=== PATIENT | female | born 1950 | race Caucasian/White ===

== ENCOUNTER 2017-03-18 14:58 | Inpatient (IN) ==
--- NOTE | 2017-03-18 16:31 | Emergency Department Note ---
Disposition Clinical Impression: Pancreatic mass, COPD exacerbation Pneumonia Qualifiers: Pneumonia type: due to unspecified organism Laterality: unspecified laterality Lung location: unspecified part of lung Qualified Code(s): J18.9 - Pneumonia, unspecified organism Disposition: Admitted As Inpatient Condition: Fair Referrals: Tj Ventura MD [Primary Care Provider] - Forms: ED Satisfaction Letter Time of Disposition: 18:20 General Adult HPI - General Chief complaint: ED Recheck/Abnormal Lab/Rx Stated complaint: abnormal labs Time Seen by Provider: 03/18/17 16:25 Source: patient Mode of arrival: ambulatory Limitations: no limitations Nursing Notes Reviewed: Yes Vital Signs Reviewed: Yes - History of Present Illness HPI Narrative: 66-year-old has history of COPD who comes in complaining of shortness of breath. Patient was seen by her doctor yesterday and he ordered a CBC and a d- dimer which were positive patient sent here to rule out a PE. Patient has had a cough. Pt Subjective Complaint: Shortness of breath Onset (ago): day(s) Location: chest Radiation: non-radiation Pain Scale: 0 - Related Data Allergies Allergy/AdvReac Type Severity Reaction Status Date / Time No Known Allergies Allergy Verified 03/18/17 15:12 All systems ED: reviewed and negative except as stated. Constitutional: Denies: fever, chills, weakness, weight change Eyes: Denies: eye pain, eye discharge, vision change ENT ED: Denies: ear pain, throat pain, dental pain, hearing loss, epistaxis, congestion, dysphagia Cardiovascular: Denies: chest pain, palpitations, dyspnea on exertion, edema, syncope Respiratory: Reports: cough, dyspnea. Denies: wheezes, hemoptysis, stridor Gastrointestinal: Denies: abdominal pain, nausea, vomiting, diarrhea, constipation, hematemesis, melena, hematochezia Genitourinary: Denies: dysuria, frequency, hematuria, discharge Musculoskeletal: Denies: back pain, neck pain, arthralgia, myalgia Integumentary: Denies: rash, abrasion, lesions Neurological: Denies: headache, weakness, numbness, paresthesias, confusion, abnormal gait, vertigo Psychiatric: Denies: anxiety, depression, suicidal thoughts, homicidal thoughts , auditory hallucinations, visual hallucinations Endocrine: Denies: fatigue Hematological/Lymphatic: Denies: easy bleeding, easy bruising Allergic/Immunologic: Denies: facial swelling, urticaria Past Medical History - Past Medical History Medical history: Reports: COPD, hypertension - Social History Smoking Status: Former smoker Smokeless Tobacco Status: No Alcohol use: Reports: heavy, recent Drug use: Reports: marijuana Physical Exam - General Limitations: no limitations General appearance: alert - Head Head exam: atraumatic, normocephalic, normal inspection - Eye Eye exam: Present: normal appearance, PERRL, EOMI - ENT ENT exam: normal exam, normal oropharynx, mucous membranes moist - Neck Neck exam: Present: normal inspection, full ROM, trachea midline - Chest Chest inspection: Present: normal inspection, symmetric chest wall rise - Respiratory Respiratory exam: Present: normal lung sounds bilaterally - Cardiovascular Cardiovascular exam: Present: regular rate, normal rhythm, normal heart sounds - Abdominal Exam Abdominal exam: Present: soft, Non-Tender. Absent: tenderness, distention, guarding, rebound, rigidity - Extremities Exam Extremities exam: Present: normal inspection, full ROM. Absent: tenderness, pedal edema - Expanded Lower Extremity Exam Neurovascular/Tendon exam: Absent: motor deficit, sensory deficit, tendon deficit Gait: observed and normal - Back Exam Back exam: Present: normal inspection, full ROM. Absent: tenderness - Neurological Exam Neurological exam: Present: alert, oriented X3 - Psychiatric Psychiatric exam: Present: normal affect, normal mood - Skin Skin exam: Present: warm, dry, intact, normal color Course - Reevaluation(s) Reevaluation #1: 66-year-old comes in with increasing shortness of breath seen by family practice doctor yesterday and started on antibiotics. Patient had lab work done and her d-dimer was elevated along with her white count so she was sent in for evaluation for possible PE. CT scan was obtained today no PE she does have a spiculated small nodule of which should be followed according to radiology and she also has a questionable mass in the head of her pancreas. She also has evidence of infection was treated but findings. Patient will be admitted for IV antibiotics. Time: 18:18 - Consultations Consultation #1: Discussed with Layla Suggs nurse practitioner Time: 18:18 Vital Signs Temperature 98.3 F 03/18/17 15:09 Pulse Rate 83 03/18/17 15:09 Respiratory Rate 18 03/18/17 15:09 Blood Pressure 186/94 03/18/17 15:09 O2 Sat by Pulse Oximetry 94 03/18/17 15:09 Temperature 98.3 F 03/18/17 15:09 Pulse Rate 78 03/18/17 17:18 Respiratory Rate 18 03/18/17 17:18 Blood Pressure 168/101 03/18/17 17:18 O2 Sat by Pulse Oximetry 100 03/18/17 17:18 Oxygen Delivery Oxygen Delivery Nasal Cannula Medical Decision Making - Lab Data Result diagrams: 03/18/17 16:44 03/18/17 16:49 Lab Results 03/18/17 03/18/17 03/18/17 Range/Units 16:44 16:49 16:49 WBC 14.1 H (4.3-11.1) K/mcL RBC 4.03 (3.82-4.97) M/mcL Hgb 13.3 (11.5-15.4) g/dL Hct 38.0 (35.3-44.9) % MCV 94.3 (83.0-100.0) fL MCH 33.0 (28.0-33.3) pg MCHC 35.0 (31.6-35.5) g/dL RDW 11.9 (11.5-14.5) % Plt Count 334 (140-400) K/mcL MPV 9.1 L (9.4-12.4) fL Seg Neutrophils % 72.0 % Band Neutrophils % 10.0 H (0-4) % Lymphocytes % 6.0 % Monocytes % 10.0 % Metamyelocytes % 2.0 H (0) % Neutrophils # 11.6 H (1.6-8.9) K/mcL Lymphocytes # 0.9 (0.6-4.6) K/mcL Monocytes # 1.4 H (0.0-1.3) K/mcL Toxic Granulation Present A (Not Present) Platelet Estimate Normal (Normal) D-Dimer 1527 H (0-500) ng/mLFEU Sodium 125 L (136-145) mEq/L Potassium 3.3 L (3.5-4.5) mEq/L Chloride 89 L (98-109) mEq/L Carbon Dioxide 27 (19-29) mEq/L BUN 11 (7-20) mg/dL Creatinine 0.70 (0.57-1.11) mg/dL Est GFR ( Amer) > 60 (> 60) Est GFR (Non-Af Amer) > 60 (> 60) BUN/Creatinine Ratio 16 (6-26) Glucose 117 H (70-99) mg/dL Calculated Osmolality 260 L (280-300) Lactic Acid (0.5-2.2) mmol/L Calcium 9.4 (8.6-10.8) mg/dL Troponin I (0-0.03) ng/mL 03/18/17 03/18/17 Range/Units 16:49 16:49 WBC (4.3-11.1) K/mcL RBC (3.82-4.97) M/mcL Hgb (11.5-15.4) g/dL Hct (35.3-44.9) % MCV (83.0-100.0) fL MCH (28.0-33.3) pg MCHC (31.6-35.5) g/dL RDW (11.5-14.5) % Plt Count (140-400) K/mcL MPV (9.4-12.4) fL Seg Neutrophils % % Band Neutrophils % (0-4) % Lymphocytes % % Monocytes % % Metamyelocytes % (0) % Neutrophils # (1.6-8.9) K/mcL Lymphocytes # (0.6-4.6) K/mcL Monocytes # (0.0-1.3) K/mcL Toxic Granulation (Not Present) Platelet Estimate (Normal) D-Dimer (0-500) ng/mLFEU Sodium (136-145) mEq/L Potassium (3.5-4.5) mEq/L Chloride (98-109) mEq/L Carbon Dioxide (19-29) mEq/L BUN (7-20) mg/dL Creatinine (0.57-1.11) mg/dL Est GFR ( Amer) (> 60) Est GFR (Non-Af Amer) (> 60) BUN/Creatinine Ratio (6-26) Glucose (70-99) mg/dL Calculated Osmolality (280-300) Lactic Acid 1.4 (0.5-2.2) mmol/L Calcium (8.6-10.8) mg/dL Troponin I 0.01 (0-0.03) ng/mL - EKG Data EKG #1 EKG attestation: Yes I reviewed and interpreted this EKG. EKG shows normal: sinus rhythm Rate: normal Rhythm: NSR Interpretation: no acute changes
[2017-03-18] MEDS ORDERED: Ipratropium/Albuterol Neb 3 ML IH ONE (16:32)
[2017-03-18] MEDS ORDERED: methylPREDNISolone 125 MG/2 ML VIAL IVP ONE (16:34)
[2017-03-18 17:01] LABS: Hemoglobin 13.3 g/dL (11.5-15.4); Mean Corpuscular Volume 94.3 fL (83.0-100.0); Mean Platelet Volume 9.1 fL (9.4-12.4); Platelet Count 334 K/mcL (140-400); Red Blood Count 4.03 M/mcL (3.82-4.97); Red Cell Distribution Width 11.9 % (11.5-14.5)
[2017-03-18 17:17] LABS: BUN/Creatinine Ratio 16 (6-26); Blood Urea Nitrogen 11 mg/dL (7-20); Calcium 9.4 mg/dL (8.6-10.8); Carbon Dioxide 27 mEq/L (19-29); Chloride 89 mEq/L (98-109); Glucose 117 mg/dL (70-99); Osmolality,Calculated 260 (280-300); Potassium 3.3 mEq/L (3.5-4.5); Sodium 125 mEq/L (136-145); eGFR For African Americans > 60 (> 60); eGFR For Non-African Americans > 60 (> 60)
[2017-03-18 17:31] LABS: Lymphocytes # 0.9 K/mcL (0.6-4.6); Monocytes # 1.4 K/mcL (0.0-1.3); Neutrophils # 11.6 K/mcL (1.6-8.9)
[2017-03-18 17:32] LABS: Platelet Estimate Normal (Normal)
[2017-03-18 17:33] LABS: Toxic Granulation Present (Not Present)
[2017-03-18] MEDS ORDERED: Levofloxacin 750 MG/150 ML 750 MG/150 ML BAG IVPB ONE (18:16)
[2017-03-18] MEDS ORDERED: Naloxone 0.4 MG/ML INJ IVP PRN (19:52)
[2017-03-18] MEDS ORDERED: Acetaminophen 325 MG TABLET PO PRN (19:52)
[2017-03-18] MEDS ORDERED: Albuterol 2.5 MG/3 ML NEBULIZER IH PRN (19:54)
[2017-03-18] MEDS ORDERED: *HR* LORazepam 2 MG/ML VIAL IVP PRN ×3 (21:43)
--- NOTE | 2017-03-18 21:54 | Internal Med History&Physical ---
Date of Encounter: 03/18/17 Time of Encounter: 21:48 Assessment and Plan (1) Atypical pneumonia Current visit: Yes Status: Acute Patient with increased shortness of breath and productive cough since Thursday. Chest CTA showed dense consolidation within the and tear lateral lower lungs bilaterally thought to be more pronounced fibrosis versus superimposed pneumonia , as well as a few more irregular opacities within the right upper lobe which have tree-in-bud appearance and may be related to atypical infection versus aspiration. Patient is at risk for atypical pneumonia with marijuana usage, and daily alcohol intake putting her at risk for aspiration. White blood cell count was elevated to 14.1. We will give broad-spectrum antibiotics Zosyn, and Levaquin. DuoNeb treatments 4 times a day Albuterol nebulizer every 2 when necessary Mucinex twice a day (2) COPD exacerbation Current visit: Yes Status: Acute Patient with COPD. She has increased shortness of breath and productive cough, pneumonia diagnosis. CT revealed severe emphysematous changes and fibrotic changes within both lungs. Budesonide formoterol twice a day DuoNeb treatments 4 times a day Albuterol nebulizer every 2 hours when necessary Solu-Medrol 40 mg IV push 3 times a day Mucinex twice a day Titrate oxygen to maintain saturation greater than 92%. (3) Hyponatremia Current visit: Yes Status: Acute Sodium of 125. Give IV fluids 0.9 normal saline at 125. Restrict free water to 1 L daily. Recheck chemistry with morning labs. Urine sodium and osmolality ordered. (4) Lung mass Current visit: Yes Status: Acute CT of the chest shows a 6 mm area nodularity along the fissure on the right which is somewhat spiculated in appearance. Follow-up is recommended. Advised follow-up CT as an outpatient to assess for progression of the mass. (5) Hypertension Current visit: Yes Status: Acute Continue home doses of atenolol and losartan Qualifiers: Hypertension type: essential hypertension Qualified Code(s): I10 - Essential (primary) hypertension (6) Pancreatic mass Current visit: Yes Status: Acute CT of the chest also revealed a cystic area involving the pancreatic head, this was incompletely imaged and evaluated. A CT of the abdomen and pelvis with contrast is recommended on a nonemergent ASIS to further evaluate. Patient can have this done as an outpatient. (7) DVT prophylaxis Current visit: Yes Status: Acute Antiembolic stockings Lovenox 40 mg subcutaneous daily Internal Medicine - H&P: HPI Chief complaint: shortness of breath Admitted From: Emergency Dept Plans for Post Hospital Care: Home History of present illness: Ms. Nichols is a 66 year old female with hypertension and COPD who presented to the emergency department today obstruction of her PCP with complaints of shortness of breath and abnormal d-dimer. Patient went to her PCP yesterday for increased shortness of breath and productive cough developing over the weekend she was diagnosed with pneumonia and started on oral antibiotics, labs were drawn and d-dimer was elevated so she was sent to the ER to rule out PE. Patient reports chills, sweats, denies any headache, chest pain, palpitations. Reports her cough is productive of thick yellow sputum. Evaluation in the ER included a chest CTA which showed no evidence of PE, emphysema, irregular opacities in the lung, and pancreatic cyst. With blood cell count was elevated to 14.1. Patient was hyponatremic with sodium of 125, and hypokalemic with potassium of 3.3. Lactate was normal at 1.4, troponin was normal at 0.01. On exam, patient alert and oriented, in no acute distress. Heart had regular rate and rhythm. Lungs with reduced sounds. Past Med Surg Social Fam HX - Past Medical History Medical history: COPD, hypertension Psychiatric history: no psych history - Past Surgical History Surgical History: no surgical history - Social History Smoking Status: Former smoker (30 pack year history) Smokeless Tobacco Status: No Alcohol use: heavy, recent Drug use: marijuana - Family History Father Adopted: [place]: Shane Corral Jr Family Member Ethnicity: Non- Living Status: Hx Family Cardiac Disorders: Yes Hx Family Respiratory Disorders: Yes Hx Family Cancer: No Hx Family GI Disorders: No Hx Family Genitourinary Disorders: No Hx Family Endocrine Disorder: No Internal Medicine - H&P: Meds Albuterol Sulfate [Albuterol Inhaler] 2 puff IH Q4-6H PRN 03/18/17 [History] Atenolol [Tenormin] 50 mg PO BID 03/18/17 [History] Clarithromycin [Biaxin] 500 mg PO BID 03/18/17 [History] Losartan Potassium [Cozaar] 100 mg PO DAILY 03/18/17 [History] Allergies No Known Allergies Allergy (Verified 03/18/17 15:12) All Systems PM: A 10-system review of systems was performed and is negative for pertinent findings except as documented above in the HPI. - Constitutional Constitutional: chills, night sweats, no fever(s) - EENT Eyes: no change in vision, no discharge, no pain, no photophobia Ears: no ear discharge, no ear pain, no tinnitus Nose, mouth and throat: no dysphagia, no nasal discharge, no neck pain, no sore throat - Cardiovascular Cardiovascular ROS IM: dyspnea, no chest pain, no diaphoresis, no lightheadedness, no palpitations, no syncope - Respiratory Respiratory: cough, dyspnea, excessive phlegm production, change in phlegm color , no wheezing - Gastrointestinal Gastrointestinal: no abdominal pain, no diarrhea, no hematemesis, no hematochezia, no melena, no nausea, no vomiting - Genitourinary Genitourinary: no change in urinary stream, no dysuria, no flank pain, no hematuria - Musculoskeletal Musculoskeletal ROS IM: no numbness, no tingling - Integumentary Integumentary IM: no rash, no unusual bruising - Neurological Neurological ROS: no confusion, no convulsions, no focal weakness, no numbness, no tingling, no tremor(s) - Hematologic/Lymphatic Hematologic/Lymphatic: no easy bruising - Constitutional Vitals: Temp Pulse Resp BP Pulse Ox 98.6 F 94 16 151/95 96 03/18/17 19:41 03/18/17 19:41 03/18/17 19:41 03/18/17 19:41 03/18/17 19:41 General appearance: Present: A&O X 3, pleasant, no acute distress - Head Head exam: Present: atraumatic, normocephalic - Eye Eye exam: Present: PERRL, conjuntiva pink, sclera anicteric Pupils: Present: PERRL - Neck Neck exam general surgery: Present: supple, trachea midline. Absent: lymphadenopathy - Respiratory Respiratory exam: Present: decreased breath sounds. Absent: accessory muscle use, rales, rhonchi, wheezes - Cardiovascular Cardiovascular exam: Present: RRR, +S1, +S2. Absent: diastolic murmur, gallop, rubs, systolic murmur - GI/Abdominal GI/Abdominal exam: Present: normal bowel sounds, soft, no peritoneal signs. Absent: distended, tenderness - Extremities Exam Extremities exam: Present: warm, radial pulses palpable and symetrical. Absent : calf tenderness, cyanotic, pedal edema - Neurological Exam Neurological exam: Present: CN II-XII intact, oriented X3, no focal deficits. Absent: facial droop, speech deficit - Skin Skin exam: Present: dry, intact Internal Med - H&P Results - Labs CBC & Chem 7: 03/18/17 16:44 03/18/17 16:49 Labs: All Lab Results (24 Hours) 03/18/17 03/18/17 03/18/17 Range/Units 16:44 16:49 16:49 WBC 14.1 H (4.3-11.1) K/mcL RBC 4.03 (3.82-4.97) M/mcL Hgb 13.3 (11.5-15.4) g/dL Hct 38.0 (35.3-44.9) % MCV 94.3 (83.0-100.0) fL MCH 33.0 (28.0-33.3) pg MCHC 35.0 (31.6-35.5) g/dL RDW 11.9 (11.5-14.5) % Plt Count 334 (140-400) K/mcL MPV 9.1 L (9.4-12.4) fL Seg Neutrophils % 72.0 % Band Neutrophils % 10.0 H (0-4) % Lymphocytes % 6.0 % Monocytes % 10.0 % Metamyelocytes % 2.0 H (0) % Neutrophils # 11.6 H (1.6-8.9) K/mcL Lymphocytes # 0.9 (0.6-4.6) K/mcL Monocytes # 1.4 H (0.0-1.3) K/mcL Toxic Granulation Present A (Not Present) Platelet Estimate Normal (Normal) D-Dimer 1527 H (0-500) ng/mLFEU Sodium 125 L (136-145) mEq/L Potassium 3.3 L (3.5-4.5) mEq/L Chloride 89 L (98-109) mEq/L Carbon Dioxide 27 (19-29) mEq/L BUN 11 (7-20) mg/dL Creatinine 0.70 (0.57-1.11) mg/dL Est GFR ( Amer) > 60 (> 60) Est GFR (Non-Af Amer) > 60 (> 60) BUN/Creatinine Ratio 16 (6-26) Glucose 117 H (70-99) mg/dL Calculated Osmolality 260 L (280-300) Lactic Acid (0.5-2.2) mmol/L Calcium 9.4 (8.6-10.8) mg/dL Troponin I (0-0.03) ng/mL 03/18/17 03/18/17 Range/Units 16:49 16:49 WBC (4.3-11.1) K/mcL RBC (3.82-4.97) M/mcL Hgb (11.5-15.4) g/dL Hct (35.3-44.9) % MCV (83.0-100.0) fL MCH (28.0-33.3) pg MCHC (31.6-35.5) g/dL RDW (11.5-14.5) % Plt Count (140-400) K/mcL MPV (9.4-12.4) fL Seg Neutrophils % % Band Neutrophils % (0-4) % Lymphocytes % % Monocytes % % Metamyelocytes % (0) % Neutrophils # (1.6-8.9) K/mcL Lymphocytes # (0.6-4.6) K/mcL Monocytes # (0.0-1.3) K/mcL Toxic Granulation (Not Present) Platelet Estimate (Normal) D-Dimer (0-500) ng/mLFEU Sodium (136-145) mEq/L Potassium (3.5-4.5) mEq/L Chloride (98-109) mEq/L Carbon Dioxide (19-29) mEq/L BUN (7-20) mg/dL Creatinine (0.57-1.11) mg/dL Est GFR ( Amer) (> 60) Est GFR (Non-Af Amer) (> 60) BUN/Creatinine Ratio (6-26) Glucose (70-99) mg/dL Calculated Osmolality (280-300) Lactic Acid 1.4 (0.5-2.2) mmol/L Calcium (8.6-10.8) mg/dL Troponin I 0.01 (0-0.03) ng/mL - Diagnostic Studies CT scan - chest Additional comments: Chest CTA 03/18/17 16:27 IMPRESSION: No evidence of pulmonary embolism. There R moderate to severe emphysematous changes as well as fibrotic changes within both lungs. There is more dense consolidation within the antro lateral lower lungs bilaterally which may be related to more focal pronounced fibrosis with superimposed pneumonia not excluded. There are a few more irregular opacities within the right upper lobe which have a tree-in-bud appearance and may be related to atypical infection versus aspiration. There is a 6 mm area nodularity along the fissure on the right which is somewhat spiculated in appearance. Follow-up is recommended. On the very last image only there appears to be a cystic area involving the pancreatic head. This is incompletely imaged and evaluated on this study. CT abdomen and pelvis with contrast recommended on a nonemergent basis to determine if this is a true finding. D/ / Elsa Mccartney MD / Elsa Mccartney MD Interpreting Provider: Elsa Mccartney MD
[2017-03-18] MEDS ORDERED: Vancomycin 750 MG in D5% in Water 250 ML IVPB SCH ×2 (22:00→23:00)
[2017-03-18] MEDS: 0.9 % Sodium Chloride 1,000 ML IVC SCH (23:30)
[2017-03-18] MEDS: Budesonide/Formoterol 160/4.5 MDI IH SCH (23:37)
[2017-03-18] MEDS: Ipratropium/Albuterol Neb 3 ML IH SCH (23:37)
[2017-03-18] MEDS: MethylPREDNISolone 40 MG/ML VIAL IVP SCH (23:40)
[2017-03-19] MEDS: Piperacillin/Tazobactam 3.375 GM in D5% in Water (Mini-Bag+) 100 ML IVPB SCH ×2 (00:54→07:53)
--- NOTE | 2017-03-19 01:06 | Event Note ---
Date of Encounter: 03/19/17 Time of Encounter: 01:04 Patient seen and examined with nurse practitioner. Agree with assessment and plan. COPD exacerbation and community acquired pneumonia. Call she had received 2 days of Levaquin still with lots of purulent sputum production and Bandemia I will cover for gram-negative such a pseudomonas with Zosyn. IV steroids and nebulizer treatments. 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 There is a 6 mm speculated lung module as well as a sadistic structure and head of the pancrease. Both will need outpatient follow-up in the later will need contrasted CT scan of the abdomen. I have discussed this with the patient in details.
[2017-03-19] MEDS: Ipratropium/Albuterol Neb 3 ML IH SCH ×4 (04:21→22:41)
[2017-03-19 05:07] LABS: Hematocrit 36.3 % (35.3-44.9); Hemoglobin 12.9 g/dL (11.5-15.4); Mean Corpuscular HGB Conc 35.5 g/dL (31.6-35.5); Mean Corpuscular Hemoglobin 33.2 pg (28.0-33.3); Mean Corpuscular Volume 93.3 fL (83.0-100.0); Mean Platelet Volume 9.6 fL (9.4-12.4); Monocytes # 0.2 K/mcL (0.0-1.3); Platelet Count 344 K/mcL (140-400); Red Blood Count 3.89 M/mcL (3.82-4.97); Red Cell Distribution Width 11.9 % (11.5-14.5)
[2017-03-19 05:21] LABS: BUN/Creatinine Ratio 15 (6-26); Blood Urea Nitrogen 9 mg/dL (7-20); Carbon Dioxide 23 mEq/L (19-29); Chloride 95 mEq/L (98-109); Glucose 175 mg/dL (70-99); Osmolality,Calculated 267 (280-300); Potassium 3.9 mEq/L (3.5-4.5); Sodium 127 mEq/L (136-145); eGFR For African Americans > 60 (> 60); eGFR For Non-African Americans > 60 (> 60)
[2017-03-19] MEDS: 0.9 % Sodium Chloride 1,000 ML IVC SCH ×3 (06:03→16:00)
[2017-03-19 06:05] LABS: Lymphocytes # 1.2 K/mcL (0.6-4.6); Neutrophils # 6.3 K/mcL (1.6-8.9); Platelet Estimate Normal (Normal); Reactive Lymphocytes Present (Not Present); Toxic Granulation Present (Not Present)
[2017-03-19] MEDS: Vitamin B Complex/Vit C/Vit E 1 EACH TABLET PO SCH (07:54)
[2017-03-19] MEDS: Folic Acid 1 MG TABLET PO SCH (07:55)
[2017-03-19] MEDS: MethylPREDNISolone 40 MG/ML VIAL IVP SCH (07:55)
[2017-03-19] MEDS: *HR* Enoxaparin 40 MG/0.4 ML SYRINGE SQ SCH (07:55)
[2017-03-19] MEDS: Thiamine (B-1) 100 MG TABLET PO SCH (07:55)
--- NOTE | 2017-03-19 08:50 | Internal Med Progress Note ---
Date of Encounter: 03/19/17 Time of Encounter: 08:48 - Assessment and plan (1) Hyponatremia Current Visit: Yes Status: Acute Assessment and plan: Probably hypovolemic hyponatremia due to underlying pneumonia and alcohol abuse. Serum sodium noted to be improving, 127 today. Continue IV hydration, follow-up urine osmole at 80 and urine sodium and monitor serum sodium closely. (2) Pneumonia Current Visit: Yes Status: Acute Assessment and plan: CT angiogram of chest shows no evidence of pulmonary embolism but does show bilateral basal infiltrates along with right upper lobe tree-in-bud opacities, concerning for atypical pneumonia. Follow-up blood cultures, continue IV Levaquin. Supportive care and supplemental oxygen as needed. Qualifiers: Pneumonia type: due to unspecified organism Laterality: right Lung location: upper lobe of lung Qualified Code(s): J18.1 - Lobar pneumonia, unspecified organism (3) Alcohol withdrawal Current Visit: Yes Status: Acute Assessment and plan: Patient was noted to be alert and oriented this morning but began to get confused, hypotensive and anxious towards evening. Patient reportedly drinks 4- 5 beers each day. Continue CIWA protocol with when necessary Ativan. Start scheduled Librium. Thiamine and folate supplements. Supportive care and fall precautions. Qualifiers: Complication of substance-induced condition: with delirium Qualified Code(s ): F10.231 - Alcohol dependence with withdrawal delirium (4) COPD exacerbation Current Visit: Yes Status: Acute Assessment and plan: Improving. We will change steroids to oral prednisone. Continue scheduled bronchodilators and supplemental oxygen as needed. Supportive care. (5) Hypertension Current Visit: Yes Status: Chronic Assessment and plan: Blood pressure noted to be elevated, probably due to alcohol withdrawal. Continue beta cyn, ARB along with when necessary IV hydralazine for appropriate blood pressure control. Qualifiers: Hypertension type: essential hypertension Qualified Code(s): I10 - Essential (primary) hypertension (6) Pancreatic mass Current Visit: Yes Status: Chronic Assessment and plan: Cystic mass in pancreatic head, incidental finding on CT chest. Outpatient follow-up for further assessment. - Subjective Interval history: Feels well; continues to have cough with yellowish sputum; improving shortness of breath; no chest pain - Constitutional Vitals: Temp Pulse Resp BP Pulse Ox 98.2 F 102 18 178/94 96 03/19/17 06:42 03/19/17 06:42 03/19/17 06:42 03/19/17 06:42 03/19/17 06:42 General appearance: Present: A&O X 3, answers questions appropriately (however noted to have flight of thoughts) - Respiratory Respiratory exam: Present: CTAB. Absent: accessory muscle use, rales, rhonchi, wheezes - Cardiovascular Cardiovascular exam: Present: RRR, +S1, +S2, tachycardia. Absent: diastolic murmur, gallop, rubs, systolic murmur - GI/Abdominal GI/Abdominal exam: Present: normal bowel sounds, soft, no peritoneal signs. Absent: distended, tenderness - Extremities Exam Extremities exam: Present: full ROM, warm, radial pulses palpable and symetrical. Absent: calf tenderness, cyanotic, pedal edema - Neurological Exam Neurological exam: Present: CN II-XII intact, oriented X3, no focal deficits. Absent: pronater drift, facial droop, speech deficit Internal Medicine: Result - Labs CBC & Chem 7: 03/19/17 04:05 03/19/17 04:05 Labs: Short CBC 03/19/17 Range/Units 04:05 WBC 7.7 (4.3-11.1) K/mcL Hgb 12.9 (11.5-15.4) g/dL Hct 36.3 (35.3-44.9) % Plt Count 344 (140-400) K/mcL Neutrophils # 6.3 (1.6-8.9) K/mcL BMP 03/19/17 04:05 Sodium 127 L Potassium 3.9 Chloride 95 L Carbon Dioxide 23 BUN 9 Creatinine 0.59 Glucose 175 H Calcium 9.0 - ABG Interpretation ABG results: PT/INR, D-dimer D-Dimer 1527 ng/mLFEU (0-500) H 03/18/17 16:49 - VTE Documentation of Mechanical Device: Graduated compression elastic hosiery Consult Discharge Plan - Plan Referrals: Tj Ventura MD [Primary Care Provider] - 03/26/17 1:30 pm (Please follow up as schedule...)
[2017-03-19] MEDS: Budesonide/Formoterol 160/4.5 MDI IH SCH ×2 (10:42→22:41)
[2017-03-19] MEDS ORDERED: *HR* LORazepam 2 MG/ML VIAL IVP PRN ×3 (12:26)
--- NOTE | 2017-03-19 14:47 | Electrocardiograph Report ---
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
[2017-03-19] MEDS: predniSONE 20 MG TABLET PO SCH (15:33)
[2017-03-19] MEDS: *HR* LORazepam 1 MG TABLET PO PRN (15:55)
[2017-03-19 17:58] LABS: BUN/Creatinine Ratio 21 (6-26); Blood Urea Nitrogen 13 mg/dL (7-20); Calcium 9.5 mg/dL (8.6-10.8); Carbon Dioxide 23 mEq/L (19-29); Chloride 98 mEq/L (98-109); Glucose 193 mg/dL (70-99); Osmolality,Calculated 275 (280-300); Potassium 3.7 mEq/L (3.5-4.5); Sodium 130 mEq/L (136-145); eGFR For African Americans > 60 (> 60); eGFR For Non-African Americans > 60 (> 60)
[2017-03-19] MEDS: Levofloxacin 750 MG/150 ML 750 MG/150 ML BAG IVPB SCH (18:20)
[2017-03-20 01:02] LABS: BUN/Creatinine Ratio 19 (6-26); Blood Urea Nitrogen 12 mg/dL (7-20); Calcium 9.3 mg/dL (8.6-10.8); Carbon Dioxide 22 mEq/L (19-29); Chloride 100 mEq/L (98-109); Glucose 152 mg/dL (70-99); Osmolality,Calculated 275 (280-300); Potassium 4.1 mEq/L (3.5-4.5); Sodium 131 mEq/L (136-145); eGFR For African Americans > 60 (> 60); eGFR For Non-African Americans > 60 (> 60)
[2017-03-20] MEDS: Ipratropium/Albuterol Neb 3 ML IH SCH ×4 (04:28→22:15)
[2017-03-20] MEDS: 0.9 % Sodium Chloride 1,000 ML IVC SCH (04:49)
[2017-03-20 05:10] LABS: Hematocrit 34.3 % (35.3-44.9); Hemoglobin 11.7 g/dL (11.5-15.4); Immature Platelets 2.9 % (1.1-6.1); Mean Corpuscular HGB Conc 34.1 g/dL (31.6-35.5); Mean Corpuscular Hemoglobin 33.1 pg (28.0-33.3); Mean Corpuscular Volume 97.2 fL (83.0-100.0); Mean Platelet Volume 9.3 fL (9.4-12.4); Platelet Count 418 K/mcL (140-400); Red Blood Count 3.53 M/mcL (3.82-4.97); Red Cell Distribution Width 12.4 % (11.5-14.5)
[2017-03-20 05:23] LABS: BUN/Creatinine Ratio 18 (6-26); Blood Urea Nitrogen 10 mg/dL (7-20); Carbon Dioxide 25 mEq/L (19-29); Chloride 101 mEq/L (98-109); Glucose 149 mg/dL (70-99); Magnesium 1.6 mg/dL (1.6-2.6); Osmolality,Calculated 278 (280-300); Potassium 4.2 mEq/L (3.5-4.5); Sodium 133 mEq/L (136-145); eGFR For African Americans > 60 (> 60); eGFR For Non-African Americans > 60 (> 60)
[2017-03-20 05:48] LABS: Large Platelets Present (Not Present); Lymphocytes # 1.6 K/mcL (0.6-4.6); Monocytes # 1.2 K/mcL (0.0-1.3); Neutrophils # 16.9 K/mcL (1.6-8.9); Platelet Estimate Increased (Normal); Reactive Lymphocytes Present (Not Present)
[2017-03-20 05:49] LABS: Toxic Granulation Present (Not Present)
[2017-03-20] MEDS: *HR* Enoxaparin 40 MG/0.4 ML SYRINGE SQ SCH (06:07)
[2017-03-20] MEDS: Thiamine (B-1) 100 MG TABLET PO SCH (09:28)
[2017-03-20] MEDS: predniSONE 20 MG TABLET PO SCH (09:28)
[2017-03-20] MEDS: Vitamin B Complex/Vit C/Vit E 1 EACH TABLET PO SCH (09:28)
[2017-03-20] MEDS: Folic Acid 1 MG TABLET PO SCH (09:28)
[2017-03-20] MEDS ORDERED: predniSONE 20 MG TABLET PO SCH (10:19)
--- NOTE | 2017-03-20 10:36 | Internal Med Progress Note ---
Date of Encounter: 03/20/17 Time of Encounter: 10:35 - Assessment and plan (1) Hyponatremia Current Visit: Yes Status: Acute Assessment and plan: Probably hypovolemic hyponatremia due to underlying pneumonia and alcohol abuse , excess free water ingestion. Serum sodium noted to be improving, 133 today. Urine osmolality noted to be low normal, urine sodium normal. Hold IV hydration and continue to monitor closely. (2) Pneumonia Current Visit: Yes Status: Acute Assessment and plan: CT angiogram of chest shows no evidence of pulmonary embolism but does show bilateral basal infiltrates along with right upper lobe tree-in-bud opacities, concerning for atypical pneumonia. Although clinically stable, patient is noted to have worsening leukocytosis. Leukocytosis initially improved but noted to be worsening today. Continue IV Levaquin and restart IV Zosyn as WBC count responded to Zosyn initially. Preliminary blood cultures remained negative, sputum culture so far negative. We will consider repeating CT chest without contrast if WBC count continues to get worse tomorrow. Supportive care and supplemental oxygen as needed. Home oxygen evaluation has been completed and patient would benefit from 2 L/m supplemental oxygen via nasal cannula, continuous and patient is noted to be mobile at home. Qualifiers: Pneumonia type: due to unspecified organism Laterality: right Lung location: upper lobe of lung Qualified Code(s): J18.1 - Lobar pneumonia, unspecified organism (3) Alcohol withdrawal Current Visit: Yes Status: Suspected Assessment and plan: Suspected. Taper off Librium. Qualifiers: Complication of substance-induced condition: uncomplicated Qualified Code(s ): F10.230 - Alcohol dependence with withdrawal, uncomplicated (4) COPD exacerbation Current Visit: Yes Status: Acute Assessment and plan: Improving. Continue oral prednisone. Continue scheduled bronchodilators and supplemental oxygen as needed. Supportive care. (5) Hypertension Current Visit: Yes Status: Chronic Assessment and plan: Blood pressure noted to be fairly controlled today but overall continues to be elevated. Continue home medications and start oral hydralazine. Will use when necessary IV hydralazine for appropriate blood pressure control. Qualifiers: Hypertension type: essential hypertension Qualified Code(s): I10 - Essential (primary) hypertension (6) Pancreatic mass Current Visit: Yes Status: Chronic - Subjective Interval history: Reports feeling improved; cough is dry now and has intermittent shortness of breath; no fever, chills, confusion, dizziness; - Constitutional Vitals: Temp Pulse Resp BP Pulse Ox 98.2 F 93 19 149/86 97 03/20/17 06:36 03/20/17 06:36 03/20/17 06:36 03/20/17 06:36 03/20/17 06:36 General appearance: Present: cachectic, A&O X 3, answers questions appropriately - Respiratory Respiratory exam: Present: CTAB. Absent: accessory muscle use, rales, rhonchi, wheezes - Cardiovascular Cardiovascular exam: Present: RRR, +S1, +S2. Absent: diastolic murmur, gallop, rubs, systolic murmur - GI/Abdominal GI/Abdominal exam: Present: normal bowel sounds, soft, no peritoneal signs. Absent: distended, tenderness - Extremities Exam Extremities exam: Present: full ROM, warm, radial pulses palpable and symetrical. Absent: calf tenderness, cyanotic, pedal edema Internal Medicine: Result - Labs CBC & Chem 7: 03/20/17 12:35 03/20/17 04:00 Labs: Short CBC 03/20/17 Range/Units 04:00 WBC 19.6 H D (4.3-11.1) K/mcL Hgb 11.7 (11.5-15.4) g/dL Hct 34.3 L (35.3-44.9) % Plt Count 418 H (140-400) K/mcL Neutrophils # 16.9 H (1.6-8.9) K/mcL BMP 03/19/17 03/19/17 03/20/17 17:31 22:53 04:00 Sodium 130 L 131 L 133 L Potassium 3.7 4.1 4.2 Chloride 98 100 101 Carbon Dioxide 23 22 25 BUN 13 12 10 Creatinine 0.63 0.62 0.57 Glucose 193 H 152 H 149 H Calcium 9.5 9.3 9.0 - ABG Interpretation ABG results: PT/INR, D-dimer D-Dimer 1527 ng/mLFEU (0-500) H 03/18/17 16:49 - VTE Documentation of Mechanical Device: Graduated compression elastic hosiery Consult Discharge Plan - Plan Referrals: Tj Ventura MD [Primary Care Provider] - 03/26/17 1:30 pm (Please follow up as schedule...)
[2017-03-20] MEDS: Budesonide/Formoterol 160/4.5 MDI IH SCH ×2 (10:45→22:15)
[2017-03-20 12:46] LABS: Hematocrit 36.7 % (35.3-44.9); Hemoglobin 12.7 g/dL (11.5-15.4); Mean Corpuscular HGB Conc 34.6 g/dL (31.6-35.5); Mean Corpuscular Hemoglobin 33.7 pg (28.0-33.3); Mean Corpuscular Volume 97.3 fL (83.0-100.0); Mean Platelet Volume 9.1 fL (9.4-12.4); Platelet Count 402 K/mcL (140-400); Red Blood Count 3.77 M/mcL (3.82-4.97); Red Cell Distribution Width 12.7 % (11.5-14.5)
[2017-03-20 13:45] LABS: Lymphocytes # 0.9 K/mcL (0.6-4.6); Monocytes # 0.2 K/mcL (0.0-1.3); Neutrophils # 20.6 K/mcL (1.6-8.9); Platelet Estimate Normal (Normal)
[2017-03-20] MEDS: hydrALAZINE 25 MG TABLET PO SCH ×2 (15:33→21:46)
[2017-03-20] MEDS: Piperacillin/Tazobactam 3.375 GM in D5% in Water (Mini-Bag+) 100 ML IVPB SCH (15:33)
[2017-03-20 19:33] LABS: Bilirubin,Urine Negative (Negative); Blood,Urine Negative (Negative); Clarity,Urine Clear (Clear); Color,Urine Yellow (Yellow); Glucose,Urine (UA) Normal (Normal); Ketones,Urine Negative (Negative); Leukocyte Esterase,Urine Negative (Negative); Nitrite,Urine Negative (Negative); Protein,Urine 30 mg/dL (Neg-Trace); Urobilinogen,Urine Normal (Normal)
[2017-03-20 19:35] LABS: Bacteria,Urine None Seen per hpf (None-Few); Hyaline Casts,Urine None Seen per lpf (None-Few); Squamous Epithelial Cell,Urine Many per lpf (None-Few)
[2017-03-20] MEDS: Levofloxacin 750 MG/150 ML 750 MG/150 ML BAG IVPB SCH (19:50)
[2017-03-20] MEDS: *HR* LORazepam 1 MG TABLET PO PRN (22:25)
[2017-03-21] MEDS ORDERED: 0.9 % Sodium Chloride Mini Bag 100 ML ONE (00:51)
[2017-03-21] MEDS: Piperacillin/Tazobactam 3.375 GM in D5% in Water (Mini-Bag+) 100 ML IVPB SCH ×3 (00:56→15:01)
[2017-03-21] MEDS: Ipratropium/Albuterol Neb 3 ML IH SCH ×2 (04:09→11:27)
[2017-03-21] MEDS: *HR* Enoxaparin 40 MG/0.4 ML SYRINGE SQ SCH (06:44)
[2017-03-21 06:54] LABS: Basophils % 0.1 %; Eosinophils % 0.1 %; Hematocrit 38.1 % (35.3-44.9); Hemoglobin 12.9 g/dL (11.5-15.4); Immature Granulocytes % 8.8 % (0-4); Lymphocytes # 1.6 K/mcL (0.6-4.6); Lymphocytes % 8.9 %; Mean Corpuscular HGB Conc 33.9 g/dL (31.6-35.5); Mean Corpuscular Hemoglobin 33.4 pg (28.0-33.3); Mean Corpuscular Volume 98.7 fL (83.0-100.0); Monocytes # 1.5 K/mcL (0.0-1.3); Monocytes % 8.6 %; Platelet Count 367 K/mcL (140-400); Red Blood Count 3.86 M/mcL (3.82-4.97); Red Cell Distribution Width 12.7 % (11.5-14.5); Segmented Neutrophils % 73.5 %
[2017-03-21 07:07] LABS: BUN/Creatinine Ratio 22 (6-26); Blood Urea Nitrogen 13 mg/dL (7-20); Calcium 9.1 mg/dL (8.6-10.8); Carbon Dioxide 24 mEq/L (19-29); Chloride 102 mEq/L (98-109); Glucose 107 mg/dL (70-99); Osmolality,Calculated 279 (280-300); Potassium 4.2 mEq/L (3.5-4.5); Sodium 134 mEq/L (136-145); eGFR For African Americans > 60 (> 60); eGFR For Non-African Americans > 60 (> 60)
[2017-03-21 07:47] LABS: Platelet Estimate Normal (Normal); Toxic Granulation Present (Not Present)
[2017-03-21] MEDS ORDERED: predniSONE 20 MG TABLET PO SCH ×2 (09:00→11:28)
[2017-03-21] MEDS: Vitamin B Complex/Vit C/Vit E 1 EACH TABLET PO SCH (09:18)
[2017-03-21] MEDS: hydrALAZINE 25 MG TABLET PO SCH ×3 (09:18→22:17)
[2017-03-21] MEDS: Thiamine (B-1) 100 MG TABLET PO SCH (09:18)
[2017-03-21] MEDS: Folic Acid 1 MG TABLET PO SCH (09:18)
--- NOTE | 2017-03-21 11:26 | Internal Med Progress Note ---
Date of Encounter: 03/21/17 Time of Encounter: 11:25 - Assessment and plan (1) Hyponatremia Current Visit: Yes Status: Acute Assessment and plan: Probably hypovolemic hyponatremia due to underlying pneumonia and alcohol abuse , excess free water ingestion. Serum sodium noted to be improving, 134 today. continue to monitor closely with free water restriction. (2) Pneumonia Current Visit: Yes Status: Acute Assessment and plan: CT angiogram of chest shows no evidence of pulmonary embolism but does show bilateral basal infiltrates along with right upper lobe tree-in-bud opacities, concerning for atypical pneumonia. Doing better clinically, improving leukocytosis. Preliminary blood cultures remained negative, sputum culture so far negative. Continue IV Levaquin and Zosyn. Supportive care and supplemental oxygen as needed. Qualifiers: Pneumonia type: due to unspecified organism Laterality: right Lung location: upper lobe of lung Qualified Code(s): J18.1 - Lobar pneumonia, unspecified organism (3) Alcohol withdrawal Current Visit: Yes Status: Suspected Assessment and plan: Suspected. Taper off Librium. Qualifiers: Complication of substance-induced condition: uncomplicated Qualified Code(s ): F10.230 - Alcohol dependence with withdrawal, uncomplicated (4) COPD exacerbation Current Visit: Yes Status: Acute Assessment and plan: Improving. Continue oral prednisone. Continue scheduled bronchodilators and supplemental oxygen as needed. Supportive care. (5) Hypertension Current Visit: Yes Status: Chronic Assessment and plan: Blood pressure noted to be well controlled. Continue current medications. Low- sodium diet. Qualifiers: Hypertension type: essential hypertension Qualified Code(s): I10 - Essential (primary) hypertension (6) Pancreatic mass Current Visit: Yes Status: Chronic (7) Anxiety Current Visit: Yes Status: Chronic Assessment and plan: Discontinue benzodiazepines and start when necessary hydroxyzine for anxiety. - Subjective Interval history: Improved dyspnea; has intermittent dry cough; no fever, chest pain, abdominal pain; depressed currently as she is not being discharged home today; - Constitutional Vitals: Temp Pulse Resp BP Pulse Ox 98.0 F 85 16 143/80 94 03/21/17 10:53 03/21/17 10:53 03/21/17 10:53 03/21/17 10:53 03/21/17 10:53 General appearance: Present: cachectic, A&O X 3, answers questions appropriately - Respiratory Respiratory exam: Present: CTAB. Absent: accessory muscle use, rales, rhonchi, wheezes - Cardiovascular Cardiovascular exam: Present: RRR, +S1, +S2. Absent: diastolic murmur, gallop, rubs, systolic murmur - GI/Abdominal GI/Abdominal exam: Present: normal bowel sounds, soft, no peritoneal signs. Absent: distended, tenderness - Extremities Exam Extremities exam: Present: full ROM, warm, radial pulses palpable and symetrical. Absent: calf tenderness, cyanotic, pedal edema Internal Medicine: Result - Labs CBC & Chem 7: 03/21/17 06:16 03/21/17 06:16 Labs: Short CBC 03/20/17 03/21/17 Range/Units 12:35 06:16 WBC 21.9 H 17.7 H (4.3-11.1) K/mcL Hgb 12.7 12.9 (11.5-15.4) g/dL Hct 36.7 38.1 (35.3-44.9) % Plt Count 402 H 367 (140-400) K/mcL Neutrophils # 20.6 H 13.0 H (1.6-8.9) K/mcL BMP 03/21/17 06:16 Sodium 134 L Potassium 4.2 Chloride 102 Carbon Dioxide 24 BUN 13 Creatinine 0.59 Glucose 107 H Calcium 9.1 Urine 03/20/17 Range/Units 19:20 Urine Color Yellow (Yellow) Urine Clarity Clear (Clear) Urine pH 6.0 (5.0-8.0) pH Units Ur Specific [place] 1.030 H (1.010-1.025) Urine Protein 30 H (Neg-Trace) mg/dL Urine Glucose (UA) Normal (Normal) mg/dL - ABG Interpretation ABG results: PT/INR, D-dimer D-Dimer 1527 ng/mLFEU (0-500) H 03/18/17 16:49 - VTE Documentation of Mechanical Device: Graduated compression elastic hosiery Consult Discharge Plan - Plan Referrals: Tj Ventura MD [Primary Care Provider] - 03/26/17 1:30 pm (Please follow up as schedule...)
[2017-03-21] MEDS: Budesonide/Formoterol 160/4.5 MDI IH SCH ×2 (11:27→19:32)
[2017-03-21] MEDS ORDERED: Ipratropium/Albuterol Neb 3 ML IH PRN (11:32)
[2017-03-21] MEDS: Levofloxacin 750 MG/150 ML 750 MG/150 ML BAG IVPB SCH (18:45)
[2017-03-22 03:39] LABS: Hematocrit 37.6 % (35.3-44.9); Hemoglobin 12.6 g/dL (11.5-15.4); Mean Corpuscular HGB Conc 33.5 g/dL (31.6-35.5); Mean Corpuscular Hemoglobin 32.5 pg (28.0-33.3); Mean Corpuscular Volume 96.9 fL (83.0-100.0); Mean Platelet Volume 8.9 fL (9.4-12.4); Platelet Count 377 K/mcL (140-400); Red Blood Count 3.88 M/mcL (3.82-4.97); Red Cell Distribution Width 12.8 % (11.5-14.5)
[2017-03-22 03:59] LABS: BUN/Creatinine Ratio 18 (6-26); Blood Urea Nitrogen 11 mg/dL (7-20); Calcium 8.6 mg/dL (8.6-10.8); Carbon Dioxide 28 mEq/L (19-29); Chloride 99 mEq/L (98-109); Glucose 127 mg/dL (70-99); Osmolality,Calculated 275 (280-300); Potassium 4.2 mEq/L (3.5-4.5); Sodium 132 mEq/L (136-145); eGFR For African Americans > 60 (> 60); eGFR For Non-African Americans > 60 (> 60)
[2017-03-22 04:57] LABS: Lymphocytes # 2.2 K/mcL (0.6-4.6); Monocytes # 1.2 K/mcL (0.0-1.3); Neutrophils # 8.9 K/mcL (1.6-8.9)
[2017-03-22 04:58] LABS: Platelet Estimate Normal (Normal); Reactive Lymphocytes Present (Not Present); Toxic Granulation Present (Not Present)
[2017-03-22] MEDS: *HR* Enoxaparin 40 MG/0.4 ML SYRINGE SQ SCH (06:24)
[2017-03-22 07:18] VITALS: BP 138/78
[2017-03-22] MEDS: Piperacillin/Tazobactam 3.375 GM in D5% in Water (Mini-Bag+) 100 ML IVPB SCH ×2 (08:17)
[2017-03-22] MEDS: hydrALAZINE 25 MG TABLET PO SCH (08:18)
[2017-03-22] MEDS: Vitamin B Complex/Vit C/Vit E 1 EACH TABLET PO SCH (08:18)
[2017-03-22] MEDS: Folic Acid 1 MG TABLET PO SCH (08:19)
[2017-03-22] MEDS: Thiamine (B-1) 100 MG TABLET PO SCH (08:19)
--- NOTE | 2017-03-22 10:24 | Discharge Summary ---
Date of Encounter: 03/22/17 Time of Encounter: 10:16 - Discharge Diagnosis (1) Hyponatremia Priority: Primary Status: Acute (2) Pneumonia Priority: Primary Status: Acute Qualifiers: Pneumonia type: due to unspecified organism Laterality: right Lung location: upper lobe of lung Qualified Code(s): J18.1 - Lobar pneumonia, unspecified organism (3) Alcohol withdrawal Priority: Primary Status: Suspected Qualifiers: Complication of substance-induced condition: uncomplicated Qualified Code(s ): F10.230 - Alcohol dependence with withdrawal, uncomplicated (4) COPD exacerbation Priority: Primary Status: Acute (5) Hypertension Priority: Secondary Status: Chronic Qualifiers: Hypertension type: essential hypertension Qualified Code(s): I10 - Essential (primary) hypertension (6) Pancreatic mass Priority: Secondary Status: Chronic (7) Anxiety Priority: Secondary Status: Chronic - Discharge Medications Prescriptions: Amoxicillin/Clavulanate [Augmentin] 875 mg PO BIDWM #6 tablet Budesonide/Formoterol 160/4.5 [Symbicort 160/4.5] 2 puff IH BIDR 30 Days hydrALAZINE [HydrALAZINE] 25 mg PO TID #90 tablet HydrOXYzine 10 mg PO TID PRN #20 tablet PRN Reason: Anxiety levoFLOXacin [Levaquin] 500 mg PO DAILY #3 tablet predniSONE [PredniSONE] 40 mg PO DAILY #5 tablet Home Medications: Albuterol Sulfate [Albuterol Inhaler] 2 puff IH Q4-6H PRN 03/18/17 [History] Atenolol [Tenormin] 50 mg PO BID 03/18/17 [History] Losartan Potassium [Cozaar] 100 mg PO DAILY 03/18/17 [History] Amoxicillin/Clavulanate [Augmentin] 875 mg PO BIDWM #6 tablet 03/22/17 [Rx] Budesonide/Formoterol 160/4.5 [Symbicort 160/4.5] 2 puff IH BIDR 30 Days [Rx] HydrOXYzine 10 mg PO TID PRN #20 tablet 03/22/17 [Rx] hydrALAZINE [HydrALAZINE] 25 mg PO TID #90 tablet 03/22/17 [Rx] levoFLOXacin [Levaquin] 500 mg PO DAILY #3 tablet 03/22/17 [Rx] predniSONE [PredniSONE] 40 mg PO DAILY #5 tablet 03/22/17 [Rx] Allergies/Adverse Reactions: Allergies No Known Allergies Allergy (Verified 03/18/17 15:12) Date of admission: 03/18/17 23:48 Primary care physician: Tj Ventura MD Discharging clinician: Anay Harden Anticipated date of discharge: 03/22/17 - Patient Status Disposition: Home, Self-Care Condition: Fair Functional capacity at discharge: independent ambulation Overall status at discharge: patient is progressing back to baseline - Discharge Instructions Instructions: Chronic Obstructive Pulmonary Disease (DC), Pneumonia (DC) Follow Up With: Tj Ventura MD [Primary Care Provider] - 03/26/17 1:30 pm (Please follow up as schedule...) Additional Instructions: F/up with Nephrology in 3-4 weeks - Diet and Activity Activity: resume usual activities as tolerated, wear oxygen at all times Diet: low fat, low cholesterol, low salt diet (free water fluid restriction to 1L/day) Hospital course: Ms. Nichols is a 66 year old female with the above medical problems who was admitted with worsening cough and shortness of breath. Patient was noted to have leukocytosis, hypoxia along with elevated d-dimer to the emergency room. CT angiogram of chest was done which showed bibasal chronic fibrotic changes with possible superimposed pneumonia along with right upper lobe infectious changes, emphysema, 6 mm spiculated nodule in the right lung. Patient was also noted to have hyponatremia. She was started on IV hydration with normal saline along with free water restriction, IV antibiotics-Levaquin and Zosyn. There has been a question of alcohol abuse at the time of admission and patient was briefly on [facility] protocol for possible alcohol withdrawal as she seemed to have hypertension and anxiety. However this is noted to be less likely and she was taken off Ativan and Librium. Patient is noted to have uncontrolled hypertension even as an outpatient, her home medications were continued and she has been started on hydralazine. She is also being discharged on when necessary hydroxyzine for anxiety. Her sodium level gradually improved and is currently 134. Patient has had a similar episode about 1.5 years ago, she was followed with nephrology as outpatient for some time and has been started on sodium chloride tablets with worsening blood pressure due to which she was taken off them. Patient's mental status was noted to wax and wane while in the hospital but she is much more alert and oriented currently. This could have been due to hyponatremia as well as underlying infection. Patient is instructed to continue free water restriction at home and to follow-up as nephrology as outpatient as needed. - Time Spent with Patient Total time spent providing and/or coordinating discharge services: Greater than 30 minutes (50 min) - Constitutional Vitals: Temp Pulse Resp BP Pulse Ox 97.8 F 83 18 138/78 98 03/22/17 07:16 03/22/17 07:16 03/22/17 07:16 03/22/17 07:16 03/22/17 07:16 General appearance: Present: cachectic, A&O X 3, answers questions appropriately - Respiratory Respiratory exam: Present: CTAB. Absent: accessory muscle use, rales, rhonchi, wheezes - Cardiovascular Cardiovascular exam: Present: RRR, +S1, +S2. Absent: diastolic murmur, gallop, rubs, systolic murmur - VTE Documentation of Mechanical Device: Graduated compression elastic hosiery
[2017-03-22] MEDS: Budesonide/Formoterol 160/4.5 MDI IH SCH (11:16)
[2017-03-22] MEDS ORDERED: Aminoglycoside Consult 1 EACH MC ONE (13:31)
== END 2017-03-22 13:32 | disposition home or self-care (01) | DRG 190 ==
LOC: EMEROO 14:58 → 2ANU 14:58
PROVIDERS: ADMIT Nurse Practitioner Acute Care; ATTEND Internal Medicine

== ENCOUNTER 2017-03-30 06:31 | Inpatient (IN) ==
[2017-03-30 07:07] LABS: Basophils # 0.1 K/mcL (0.0-0.2); Basophils % 0.4 %; Eosinophils # 0.2 K/mcL (0.0-0.6); Eosinophils % 1.4 %; Hematocrit 39.3 % (35.3-44.9); Hemoglobin 13.2 g/dL (11.5-15.4); Immature Granulocytes % 1.1 % (0-4); Lymphocytes # 1.5 K/mcL (0.6-4.6); Lymphocytes % 11.4 %; Mean Corpuscular HGB Conc 33.6 g/dL (31.6-35.5); Mean Corpuscular Hemoglobin 32.9 pg (28.0-33.3); Mean Platelet Volume 9.2 fL (9.4-12.4); Monocytes # 1.4 K/mcL (0.0-1.3); Monocytes % 10.3 %; Neutrophils # 10.2 K/mcL (1.6-8.9); Platelet Count 384 K/mcL (140-400); Red Blood Count 4.01 M/mcL (3.82-4.97); Red Cell Distribution Width 12.8 % (11.5-14.5); Segmented Neutrophils % 75.4 %
--- NOTE | 2017-03-30 07:10 | Emergency Department Note ---
Disposition Clinical Impression: Altered mental status Qualifiers: Altered mental status type: unspecified Qualified Code(s): R41.82 - Altered mental status, unspecified Disposition: Admitted As Inpatient Condition: Fair Time of Disposition: 12:15 Altered Mental Status HPI - General Chief Complaint: ED Altered Mental Status Stated Complaint: confusion,released last thursday from here Time Seen by Provider: 03/30/17 07:01 Source: family Limitations: altered mental status Nursing Notes Reviewed: Yes Vital Signs Reviewed: Yes - History of Present Illness HPI Narrative: 66-year-old female is brought to the emergency department by her spouse for evaluation of altered mental status. Patient's spouse states that patient was admitted here on 03/18/17 for complaints of shortness of breath and a worsening cough. The patient was subsequently admitted after she was found to be hyponatremic. She was given IV hydration with normal saline and a subsequent free water restriction. She was treated for a pneumonia with IV antibiotics including Levaquin and Zosyn. She was discharged home on by mouth Levaquin and Augmentin. The patient's spouse states that the patient was slightly altered at the time of discharge, however not as severely as she has now. He states that she has had a gradual worsening of her altered mentation ever since discharge from the hospital. He states that the patient has had a similar episode such as this approximately 1-1/2 years ago. He states that this episode was also due to hyponatremia. The patient is a rather poor historian. She is alert to person and place. She does deny any chest pain, abdominal pain , or known fevers however. The patient's spouse states that the patient's cough has much improved since her initial admission for pneumonia. He states that he has been checking her SPO2 at home with a hand-held pulse oximeter and that she is consistently running 98 and 99%. complaint: altered mental status Onset (ago): week(s) (Gradual worsening over the course of 2 weeks) Consistency of Symptoms: getting worse - Related Data Home Medications Medication Instructions Recorded Confirmed Albuterol Sulfate [Albuterol 2 puff IH Q4-6H PRN 03/18/17 03/30/17 Inhaler] Atenolol [Tenormin] 50 mg PO BID 03/18/17 03/30/17 Losartan Potassium [Cozaar] 100 mg PO DAILY 03/18/17 03/30/17 Previous Rx's Medication Instructions Recorded Amoxicillin/Clavulanate [Augmentin] 875 mg PO BIDWM #6 tablet 03/22/17 Budesonide/Formoterol 160/4.5 2 puff IH BIDR 30 Days 03/22/17 [Symbicort 160/4.5] HydrOXYzine 10 mg PO TID PRN #20 tablet 03/22/17 hydrALAZINE [HydrALAZINE] 25 mg PO TID #90 tablet 03/22/17 levoFLOXacin [Levaquin] 500 mg PO DAILY #3 tablet 03/22/17 predniSONE [PredniSONE] 40 mg PO DAILY #5 tablet 03/22/17 Allergies Allergy/AdvReac Type Severity Reaction Status Date / Time No Known Allergies Allergy Verified 03/18/17 15:12 Limitations: ROS unobtainable due to patients medical condition (Altered mental status) Constitutional: Denies: fever Cardiovascular: Denies: chest pain Gastrointestinal: Denies: abdominal pain Past Medical History - Past Medical History Attestation: Yes The following information was validated with the patient. Source: old records reviewed, obtained from family, nursing notes reviewed Medical history: Reports: COPD, hypertension Surgical history: Reports: no surgical history Psychiatric history: Reports: no psych history - Social History Smoking Status: Former smoker Smokeless Tobacco Status: No Alcohol use: Reports: occasionally Drug use: Reports: marijuana Physical Exam - General Limitations: altered mental status General appearance: alert, in no apparent distress - Head Head exam: atraumatic, normocephalic, normal inspection - Eye Eye exam: Present: normal appearance, PERRL, EOMI. Absent: nystagmus - Expanded Eye Exam Pupils: Bilateral: regular, round, reactive, size (2) - ENT ENT exam: mucous membranes moist - Neck Neck exam: Present: normal inspection, full ROM, trachea midline. Absent: lymphadenopathy - Chest Chest inspection: Present: normal inspection, symmetric chest wall rise - Respiratory Respiratory exam: Present: normal lung sounds bilaterally. Absent: respiratory distress, wheezes, stridor, accessory muscle use, prolonged expiratory phase - Cardiovascular Cardiovascular exam: Present: regular rate, normal rhythm, normal heart sounds - Abdominal Exam Abdominal exam: Present: soft, Non-Tender, normal bowel sounds. Absent: tenderness, distention, guarding, rebound, rigidity - Extremities Exam Extremities exam: Present: normal inspection, full ROM. Absent: tenderness, pedal edema - Neurological Exam Neurological exam: Present: alert - Expanded Neurological Exam Speech: Present: fluid speech Cranial nerves: EOM function (II, III, IV, ): Normal Motor strength - LUE: 5/5 Motor strength - RUE: 5/5 Motor strength - LLE: 5/5 Motor strength - RLE: 5/5 Coma Scale Eye Opening: Spontaneous Coma Scale Motor Response: Obeys Commands Coma Scale Verbal Response: Confused Coma Scale Total: 14 - Psychiatric Psychiatric exam: Present: normal affect, normal mood - Skin Skin exam: Present: warm, dry, intact, normal color Course Course Narrative: 0715: The patient has difficulty following commands during my attempt at a neuro exam, making a detailed and complete neuro exam difficult. The patient's states an approximate 2 week insidious onset of her altered mentation. We will perform a complete altered mental status workup including CT of the head and brain without contrast. 1214: I spoke with Dr. Bee of the hospitalist service. He has accepted the patient for admission to the hospitalist's service. Vital Signs Temperature 98.1 F 03/30/17 06:34 Pulse Rate 79 03/30/17 06:34 Respiratory Rate 18 03/30/17 06:34 Blood Pressure 166/100 03/30/17 06:34 O2 Sat by Pulse Oximetry 96 03/30/17 06:34 Temperature 98.1 F 03/30/17 06:34 Pulse Rate 83 03/30/17 08:00 Respiratory Rate 18 03/30/17 12:40 Blood Pressure 195/90 03/30/17 12:40 O2 Sat by Pulse Oximetry 95 03/30/17 08:00 Oxygen Delivery Oxygen Delivery Room Air Procedures - Lumbar Puncture Consent Obtained: written consent Time Out Performed: Yes Patient Position: upright Skin Prep: Povidone-Iodine 1% Local Anesthetic: lidocaine 1% Amount of anesthesia used (mL): 3 Spinal Needle Gauge: 22G Interspace Used: L3-L4 Fluid Initially Obtained: clear Additional Comments: Lumbar puncture overseen by Dr. Melissa and Dr. Long. No complications status post procedure. Patient tolerated well. Complications: none Altered Mental Status - Lab Data Result diagrams: 03/30/17 06:51 03/30/17 06:51 Lab Results 03/30/17 03/30/17 03/30/17 Range/Units 06:51 06:51 06:51 WBC 13.5 H (4.3-11.1) K/mcL RBC 4.01 (3.82-4.97) M/mcL Hgb 13.2 (11.5-15.4) g/dL Hct 39.3 (35.3-44.9) % MCV 98.0 (83.0-100.0) fL MCH 32.9 (28.0-33.3) pg MCHC 33.6 (31.6-35.5) g/dL RDW 12.8 (11.5-14.5) % Plt Count 384 (140-400) K/mcL MPV 9.2 L (9.4-12.4) fL Immature Gran % 1.1 (0-4) % Seg Neutrophils % 75.4 % Lymphocytes % 11.4 % Monocytes % 10.3 % Eosinophils % 1.4 % Basophils % 0.4 % Neutrophils # 10.2 H (1.6-8.9) K/mcL Lymphocytes # 1.5 (0.6-4.6) K/mcL Monocytes # 1.4 H (0.0-1.3) K/mcL Eosinophils # 0.2 (0.0-0.6) K/mcL Basophils # 0.1 (0.0-0.2) K/mcL PT 9.9 (9.4-12.1) Seconds INR 0.9 APTT 25.7 L (26.0-36.0) Seconds Sodium 136 (136-145) mEq/L Potassium 3.6 (3.5-4.5) mEq/L Chloride 98 (98-109) mEq/L Carbon Dioxide 29 (19-29) mEq/L BUN 18 (7-20) mg/dL Creatinine 0.68 (0.57-1.11) mg/dL Est GFR ( Amer) > 60 (> 60) Est GFR (Non-Af Amer) > 60 (> 60) BUN/Creatinine Ratio 26 (6-26) Glucose 90 (70-99) mg/dL Calculated Osmolality 283 (280-300) Lactic Acid (0.5-2.2) mmol/L Calcium 9.6 (8.6-10.8) mg/dL Total Bilirubin 1.1 (0.2-1.2) mg/dL Direct Bilirubin 0.4 (0.0-0.5) mg/dL Indirect Bilirubin 0.7 (0.0-1.2) mg/dL AST 26 (5-34) Units/L ALT 32 (0-55) Units/L Alkaline Phosphatase 71 (38-126) Units/L Ammonia (18-72) mcmol/L Troponin I (0-0.03) ng/mL Serum Total Protein 6.8 (6.0-8.3) g/dL Albumin 3.4 L (3.5-5.0) g/dL Globulin 3.4 (2.4-3.5) g/dL Albumin/Globulin Ratio 1.0 L (1.1-2.2) Urine Color (Yellow) Urine Clarity (Clear) Urine pH (5.0-8.0) pH Units Ur Specific [place] (1.010-1.025) Urine Protein (Neg-Trace) mg/dL Urine Glucose (UA) (Normal) mg/dL Urine Ketones (Negative) mg/dL Urine Blood (Negative) Urine Nitrite (Negative) Urine Bilirubin (Negative) Urine Urobilinogen (Normal) mg/dL Ur Leukocyte Esterase (Negative) Urine Microscopic RBC (0-3) per hpf Urine Microscopic WBC (0-3) per hpf Ur Squamous Epith Cells (None-Few) per lpf Urine Bacteria (None-Few) per hpf Hyaline Casts (None-Few) per lpf Ur Culture Indicated? (NO) CSF Volume mL CSF Appearance (Clear) CSF Color (Colorless) CSF RBC (0.000 - 0.002) M/mcL CSF Tot Nucleated Cells (0-5) TNC/mcL CSF Seg Neutrophils CSF Band Neutrophils % CSF Lymphocytes % CSF Monocytes % CSF Eosinophils % CSF Basophils % CSF Other Cells % CSF Xanth Comm (Not Observe) Urine Opiates Screen (Ajjnfx=258) ng/mL Ur Barbiturates Screen (Uebkwt=404) ng/mL Ur Phencyclidine Scrn (Cutoff=25) ng/mL Ur Amphetamines Screen (Zixzkt=3143) ng/mL U Benzodiazepines Scrn (Cbzkem=239) ng/mL Urine Cocaine Screen (Cutoff= 300) ng/mL U Marijuana (THC) Screen (Cutoff = 50) ng/mL Ethyl Alcohol < 10 (0-10) mg/dL 03/30/17 03/30/17 03/30/17 Range/Units 06:51 06:51 06:51 WBC (4.3-11.1) K/mcL RBC (3.82-4.97) M/mcL Hgb (11.5-15.4) g/dL Hct (35.3-44.9) % MCV (83.0-100.0) fL MCH (28.0-33.3) pg MCHC (31.6-35.5) g/dL RDW (11.5-14.5) % Plt Count (140-400) K/mcL MPV (9.4-12.4) fL Immature Gran % (0-4) % Seg Neutrophils % % Lymphocytes % % Monocytes % % Eosinophils % % Basophils % % Neutrophils # (1.6-8.9) K/mcL Lymphocytes # (0.6-4.6) K/mcL Monocytes # (0.0-1.3) K/mcL Eosinophils # (0.0-0.6) K/mcL Basophils # (0.0-0.2) K/mcL PT (9.4-12.1) Seconds INR APTT (26.0-36.0) Seconds Sodium (136-145) mEq/L Potassium (3.5-4.5) mEq/L Chloride (98-109) mEq/L Carbon Dioxide (19-29) mEq/L BUN (7-20) mg/dL Creatinine (0.57-1.11) mg/dL Est GFR ( Amer) (> 60) Est GFR (Non-Af Amer) (> 60) BUN/Creatinine Ratio (6-26) Glucose (70-99) mg/dL Calculated Osmolality (280-300) Lactic Acid 1.0 (0.5-2.2) mmol/L Calcium (8.6-10.8) mg/dL Total Bilirubin (0.2-1.2) mg/dL Direct Bilirubin (0.0-0.5) mg/dL Indirect Bilirubin (0.0-1.2) mg/dL AST (5-34) Units/L ALT (0-55) Units/L Alkaline Phosphatase (38-126) Units/L Ammonia 11 L (18-72) mcmol/L Troponin I 0.01 (0-0.03) ng/mL Serum Total Protein (6.0-8.3) g/dL Albumin (3.5-5.0) g/dL Globulin (2.4-3.5) g/dL Albumin/Globulin Ratio (1.1-2.2) Urine Color (Yellow) Urine Clarity (Clear) Urine pH (5.0-8.0) pH Units Ur Specific [place] (1.010-1.025) Urine Protein (Neg-Trace) mg/dL Urine Glucose (UA) (Normal) mg/dL Urine Ketones (Negative) mg/dL Urine Blood (Negative) Urine Nitrite (Negative) Urine Bilirubin (Negative) Urine Urobilinogen (Normal) mg/dL Ur Leukocyte Esterase (Negative) Urine Microscopic RBC (0-3) per hpf Urine Microscopic WBC (0-3) per hpf Ur Squamous Epith Cells (None-Few) per lpf Urine Bacteria (None-Few) per hpf Hyaline Casts (None-Few) per lpf Ur Culture Indicated? (NO) CSF Volume mL CSF Appearance (Clear) CSF Color (Colorless) CSF RBC (0.000 - 0.002) M/mcL CSF Tot Nucleated Cells (0-5) TNC/mcL CSF Seg Neutrophils CSF Band Neutrophils % CSF Lymphocytes % CSF Monocytes % CSF Eosinophils % CSF Basophils % CSF Other Cells % CSF Xanth Comm (Not Observe) Urine Opiates Screen (Opzlww=830) ng/mL Ur Barbiturates Screen (Zddckj=047) ng/mL Ur Phencyclidine Scrn (Cutoff=25) ng/mL Ur Amphetamines Screen (Wowpgy=7780) ng/mL U Benzodiazepines Scrn (Yasnyv=915) ng/mL Urine Cocaine Screen (Cutoff= 300) ng/mL U Marijuana (THC) Screen (Cutoff = 50) ng/mL Ethyl Alcohol (0-10) mg/dL 03/30/17 03/30/17 03/30/17 Range/Units 08:30 08:30 12:00 WBC (4.3-11.1) K/mcL RBC (3.82-4.97) M/mcL Hgb (11.5-15.4) g/dL Hct (35.3-44.9) % MCV (83.0-100.0) fL MCH (28.0-33.3) pg MCHC (31.6-35.5) g/dL RDW (11.5-14.5) % Plt Count (140-400) K/mcL MPV (9.4-12.4) fL Immature Gran % (0-4) % Seg Neutrophils % % Lymphocytes % % Monocytes % % Eosinophils % % Basophils % % Neutrophils # (1.6-8.9) K/mcL Lymphocytes # (0.6-4.6) K/mcL Monocytes # (0.0-1.3) K/mcL Eosinophils # (0.0-0.6) K/mcL Basophils # (0.0-0.2) K/mcL PT (9.4-12.1) Seconds INR APTT (26.0-36.0) Seconds Sodium (136-145) mEq/L Potassium (3.5-4.5) mEq/L Chloride (98-109) mEq/L Carbon Dioxide (19-29) mEq/L BUN (7-20) mg/dL Creatinine (0.57-1.11) mg/dL Est GFR ( Amer) (> 60) Est GFR (Non-Af Amer) (> 60) BUN/Creatinine Ratio (6-26) Glucose (70-99) mg/dL Calculated Osmolality (280-300) Lactic Acid (0.5-2.2) mmol/L Calcium (8.6-10.8) mg/dL Total Bilirubin (0.2-1.2) mg/dL Direct Bilirubin (0.0-0.5) mg/dL Indirect Bilirubin (0.0-1.2) mg/dL AST (5-34) Units/L ALT (0-55) Units/L Alkaline Phosphatase (38-126) Units/L Ammonia (18-72) mcmol/L Troponin I (0-0.03) ng/mL Serum Total Protein (6.0-8.3) g/dL Albumin (3.5-5.0) g/dL Globulin (2.4-3.5) g/dL Albumin/Globulin Ratio (1.1-2.2) Urine Color Yellow (Yellow) Urine Clarity Cloudy A (Clear) Urine pH 8.0 (5.0-8.0) pH Units Ur Specific [place] 1.013 (1.010-1.025) Urine Protein Negative (Neg-Trace) mg/dL Urine Glucose (UA) Normal (Normal) mg/dL Urine Ketones Negative (Negative) mg/dL Urine Blood Negative (Negative) Urine Nitrite Negative (Negative) Urine Bilirubin Negative (Negative) Urine Urobilinogen Normal (Normal) mg/dL Ur Leukocyte Esterase Negative (Negative) Urine Microscopic RBC 0-3 (0-3) per hpf Urine Microscopic WBC 0-3 (0-3) per hpf Ur Squamous Epith Cells Moderate H (None-Few) per lpf Urine Bacteria None Seen (None-Few) per hpf Hyaline Casts None Seen (None-Few) per lpf Ur Culture Indicated? NO (NO) CSF Volume 5.5 mL CSF Appearance Clear (Clear) CSF Color Colorless (Colorless) CSF RBC < 0.002 (0.000 - 0.002) M/mcL CSF Tot Nucleated Cells < 3 (0-5) TNC/mcL CSF Seg Neutrophils TNP CSF Band Neutrophils % TNP CSF Lymphocytes % TNP CSF Monocytes % TNP CSF Eosinophils % TNP CSF Basophils % TNP CSF Other Cells % TNP CSF Xanth Comm Not Observed (Not Observe) Urine Opiates Screen Negative (Ciggte=935) ng/mL Ur Barbiturates Screen Negative (Rwzvqv=685) ng/mL Ur Phencyclidine Scrn Negative (Cutoff=25) ng/mL Ur Amphetamines Screen Negative (Bexvgx=9628) ng/mL U Benzodiazepines Scrn Positive H (Odnkvf=135) ng/mL Urine Cocaine Screen Negative (Cutoff= 300) ng/mL U Marijuana (THC) Screen Positive H (Cutoff = 50) ng/mL Ethyl Alcohol (0-10) mg/dL Attestation Statement - Attestation Attestation: I examined this patient and my medical decision-making was reviewed with the DECK MECHANIC/PA/Advanced Practice Nurse/Resident Physician. I agree with the documented findings, disposition and treatment plan as described except to the extent set forth below. Patient to the emergency department with confusion. Arrives with family. They state she has been confused that she was admitted recently. They state it got worse last night but has been progressing since discharge. No fever. Patient laying in bed in no distress. When asked if she needs anything she states " just felt my breathing." Patient is in no respiratory distress. Her lungs are clear. No rash. Plan. Altered mental status workup. Hospitalist requesting lumbar puncture. Patient is afebrile. No meningismus. LP performed. We will admit to medicine. 35 minutes of critical care exclusive of separately billable procedures.
[2017-03-30 07:19] LABS: Alanine Aminotransferase 32 Units/L (0-55); Albumin 3.4 g/dL (3.5-5.0); Alkaline Phosphatase 71 Units/L (38-126); Aspartate Amino Transferase 26 Units/L (5-34); BUN/Creatinine Ratio 26 (6-26); Bilirubin,Direct 0.4 mg/dL (0.0-0.5); Bilirubin,Indirect 0.7 mg/dL (0.0-1.2); Bilirubin,Total 1.1 mg/dL (0.2-1.2); Blood Urea Nitrogen 18 mg/dL (7-20); Calcium 9.6 mg/dL (8.6-10.8); Carbon Dioxide 29 mEq/L (19-29); Chloride 98 mEq/L (98-109); Globulin 3.4 g/dL (2.4-3.5); Glucose 90 mg/dL (70-99); Osmolality,Calculated 283 (280-300); Potassium 3.6 mEq/L (3.5-4.5); Sodium 136 mEq/L (136-145); Total Protein 6.8 g/dL (6.0-8.3); eGFR For African Americans > 60 (> 60); eGFR For Non-African Americans > 60 (> 60)
[2017-03-30 07:20] LABS: INR 0.9; Prothrombin Time 9.9 Seconds (9.4-12.1)
[2017-03-30 07:21] LABS: Ethanol < 10 mg/dL (0-10)
[2017-03-30 07:23] LABS: Activated Partial Thrombo Time 25.7 Seconds (26.0-36.0)
[2017-03-30 08:49] LABS: Bilirubin,Urine Negative (Negative); Blood,Urine Negative (Negative); Clarity,Urine Cloudy (Clear); Color,Urine Yellow (Yellow); Glucose,Urine (UA) Normal (Normal); Ketones,Urine Negative (Negative); Leukocyte Esterase,Urine Negative (Negative); Nitrite,Urine Negative (Negative); Protein,Urine Negative (Neg-Trace); Specific Gravity,Urine 1.013 (1.010-1.025); Urobilinogen,Urine Normal (Normal)
[2017-03-30 08:52] LABS: Bacteria,Urine None Seen per hpf (None-Few); Hyaline Casts,Urine None Seen per lpf (None-Few); RBC,Urine 0-3 per hpf (0-3); Squamous Epithelial Cell,Urine Moderate per lpf (None-Few); WBC,Urine 0-3 per hpf (0-3)
[2017-03-30 08:53] LABS: Amphetamine Screen,Urine Negative ng/mL (Cutoff=1000); Barbiturate Screen,Urine Negative ng/mL (Cutoff=200); Benzodiazepines Screen,Urine Positive ng/mL (Cutoff=200); Cannabinoid Screen,Urine Positive ng/mL (Cutoff = 50); Cocaine Screen,Urine Negative ng/mL (Cutoff= 300); Opiate Screen,Urine Negative ng/mL (Cutoff=300); Phencyclidine Screen,Urine Negative ng/mL (Cutoff=25)
[2017-03-30] MEDS ORDERED: Acyclovir 500 MG in D5% in Water 100 ML IVPB ONE (12:11)
[2017-03-30 12:35] LABS: Red Blood Cell,CSF < 0.002 M/mcL
[2017-03-30 12:36] LABS: Appearance,CSF Clear (Clear)
[2017-03-30 13:02] LABS: Glucose,CSF 48 mg/dL (40-70); Total Protein,CSF 37 mg/dL (15-45)
[2017-03-30] MEDS ORDERED: Naloxone 0.4 MG/ML INJ IVP PRN (13:19)
[2017-03-30] MEDS ORDERED: Acetaminophen 325 MG TABLET PO PRN (13:19)
[2017-03-30] MEDS ORDERED: 0.9 % Sodium Chloride 1,000 ML IVC SCH (13:30)
[2017-03-30] MEDS: hydrALAZINE 25 MG TABLET PO SCH ×2 (13:40→20:23)
--- NOTE | 2017-03-30 13:53 | Internal Med History&Physical ---
Date of Encounter: 03/30/17 Time of Encounter: 13:30 Assessment and Plan (1) Altered mental status Current visit: Yes Status: Acute Patient with waxing and waning altered mental status and disorientation. Uncertain etiology. Has leukocytosis. Lumbar puncture performed an EGD but findings do not show any signs of meningitis. Patient did receive acyclovir and Rocephin in the ER. We will follow results of lumbar puncture for this including culture and HSV testing. For now we will hold any further medications for this. Gentle hydration. Will get MRI of the brain with IV contrast to look for any other abnormalities. Qualifiers: Altered mental status type: disorientation Qualified Code(s): R41.0 - Disorientation, unspecified (2) Hypertensive urgency Current visit: Yes Status: Acute Patient with severely elevated blood pressure. We will treat with IV hydralazine and resume home medications. If blood pressure does not improve, we will start her on IV nicardipine drip. (3) COPD (chronic obstructive pulmonary disease) Current visit: Yes Status: Chronic Not in acute exacerbation. Will treat with bronchodilators as needed. Qualifiers: COPD type: emphysema Emphysema type: panlobular Qualified Code(s): J43.1 - Panlobular emphysema (4) Lung mass Current visit: No Status: Acute Spiculated 6MM lung mass noted on prior CT scan done during last admission. Needs follow up with repeat imaging per Fleischner Society guidelines (5) Hypertension Current visit: Yes Status: Chronic Uncontrolled. Continue home medications and monitor blood pressure closely. Qualifiers: Hypertension type: essential hypertension Qualified Code(s): I10 - Essential (primary) hypertension (6) Pancreatic mass Current visit: No Status: Chronic Cystic mass noted on CT scan of chest done during last hospitalization. This will need further dedicated CT scan of the abdomen and pelvis which can be done as outpatient. Internal Medicine - H&P: HPI Chief complaint: Confusion and altered mental status Admitted From: Emergency Dept Plans for Post Hospital Care: Home History of present illness: Ms. Nichols is a 66 year old female patient with history of COPD, hypertension, hyponatremia presented to the ER with complaints of altered mental status. Patient has been having waxing and waning confusion for several days now including during her recent hospitalization 10 days back. The time of discharge , her confusion had improved. It was believed to be due to pneumonia that the patient was being treated for them. She never really returned to baseline and continued to have confusion at home. The patient currently is disoriented and is not answering questions appropriately. As such history has been obtained through review of ED records. Patient had completed treatment for pneumonia and her cough and respiratory symptoms had improved. She was also saturating well on room air per her pulse oximeter at home. Her was concerned about hyponatremia had previously developed similar symptoms when she was hyponatremic. During her last hospitalization, she had been admitted with a sodium of 125. This had improved to 132 by the time of her discharge. Today her sodium level is 136. Past Med Surg Social Fam HX - Past Medical History Source: old records reviewed Medical history: COPD, hypertension Psychiatric history: no psych history - Past Surgical History Surgical History: no surgical history - Social History Smoking Status: Former smoker Smokeless Tobacco Status: No Alcohol use: occasionally Drug use: marijuana - Family History Father Adopted: No Family Member Ethnicity: Non- Living Status: Hx Family Cardiac Disorders: Yes Hx Family Respiratory Disorders: Yes Hx Family Cancer: No Hx Family GI Disorders: No Hx Family Endocrine Disorder: No Internal Medicine - H&P: Meds Albuterol Sulfate [Albuterol Inhaler] 2 puff IH Q4-6H PRN 03/18/17 [History] Atenolol [Tenormin] 50 mg PO BID 03/18/17 [History] Losartan Potassium [Cozaar] 100 mg PO DAILY 03/18/17 [History] Amoxicillin/Clavulanate [Augmentin] 875 mg PO BIDWM #6 tablet 03/22/17 [Rx] Budesonide/Formoterol 160/4.5 [Symbicort 160/4.5] 2 puff IH BIDR 30 Days [Rx] HydrOXYzine 10 mg PO TID PRN #20 tablet 03/22/17 [Rx] hydrALAZINE [HydrALAZINE] 25 mg PO TID #90 tablet 03/22/17 [Rx] levoFLOXacin [Levaquin] 500 mg PO DAILY #3 tablet 03/22/17 [Rx] predniSONE [PredniSONE] 40 mg PO DAILY #5 tablet 03/22/17 [Rx] Allergies No Known Allergies Allergy (Verified 03/18/17 15:12) ROS unobtainable: due to mental status (Obtained through review of ED records as patient is unable to give accurate answers) All Systems PM: A 10-system review of systems was performed and is negative for pertinent findings except as documented above in the HPI. - Constitutional Constitutional: no chills, no fever(s), no night sweats - EENT Eyes: no change in vision, no discharge, no pain, no photophobia Ears: no ear discharge, no ear pain, no tinnitus Nose, mouth and throat: no dysphagia, no nasal discharge, no neck pain, no sore throat - Cardiovascular Cardiovascular ROS IM: no chest pain, no diaphoresis, no dyspnea, no lightheadedness, no palpitations, no syncope - Respiratory Respiratory: cough, dyspnea - Gastrointestinal Gastrointestinal: no abdominal pain, no diarrhea, no hematemesis, no hematochezia, no melena, no nausea, no vomiting - Genitourinary Genitourinary: no change in urinary stream, no dysuria, no flank pain, no hematuria - Musculoskeletal Musculoskeletal ROS IM: no numbness, no tingling - Integumentary Integumentary IM: no rash, no unusual bruising - Neurological Neurological ROS: confusion, no convulsions, no focal weakness, no numbness, no tingling, no tremor(s) - Hematologic/Lymphatic Hematologic/Lymphatic: no easy bruising - Constitutional Vitals: Temp Pulse Resp BP Pulse Ox 98.6 F 83 17 201/107 95 03/30/17 13:22 03/30/17 13:22 03/30/17 13:22 03/30/17 13:22 03/30/17 13:22 General appearance: Present: cooperative, A&O X 2, pleasant. Absent: answers questions appropriately Exam: Patient is disoriented to date and time. Unable to answer questions appropriately. - Eye Eye exam: Present: EOMI, PERRL, conjuntiva pink, sclera anicteric - Neck Neck exam general surgery: Present: supple, trachea midline. Absent: lymphadenopathy, nuchal rigidity - Cardiovascular Cardiovascular exam: Present: RRR, +S1, +S2. Absent: diastolic murmur, gallop, rubs, systolic murmur - GI/Abdominal GI/Abdominal exam: Present: normal bowel sounds, soft, no peritoneal signs. Absent: distended, tenderness - Extremities Exam Extremities exam: Present: warm, radial pulses palpable and symetrical. Absent : calf tenderness, cyanotic, pedal edema - Neurological Exam Neurological exam: Present: altered, no focal deficits, strengths equal and symetr throughout. Absent: facial droop, speech deficit - Skin Skin exam: Present: dry, intact Internal Med - H&P Results - Labs CBC & Chem 7: 03/30/17 06:51 03/30/17 06:51 - Impressions Impressions Chest X-Ray 03/30/17 07:01 IMPRESSION: COPD. Atelectasis versus scarring at the bilateral lung bases, stable. D/ / Arnold Yusuf MD / Arnold Yusuf MD Interpreting Provider: Arnold Yusuf MD Head CT 03/30/17 07:01 IMPRESSION: No acute intracranial abnormality. Mild chronic ischemic changes. D/ / Navjot Rosales MD / Navjot Rosales MD Interpreting Provider: Navjot Rosales MD
--- NOTE | 2017-03-30 13:58 | Electrocardiograph Report ---
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
[2017-03-30] MEDS: *HR* Heparin 5,000 UNIT/ML VIAL SQ SCH (17:59)
[2017-03-30] MEDS: Budesonide/Formoterol 160/4.5 MDI IH SCH (19:50)
[2017-03-31] MEDS: *HR* Heparin 5,000 UNIT/ML VIAL SQ SCH ×2 (06:18→18:58)
[2017-03-31 07:29] LABS: Basophils # 0.1 K/mcL (0.0-0.2); Basophils % 0.4 %; Eosinophils # 0.1 K/mcL (0.0-0.6); Eosinophils % 0.9 %; Hematocrit 36.9 % (35.3-44.9); Hemoglobin 12.7 g/dL (11.5-15.4); Immature Granulocytes % 0.9 % (0-4); Lymphocytes # 1.1 K/mcL (0.6-4.6); Lymphocytes % 9.7 %; Mean Corpuscular HGB Conc 34.4 g/dL (31.6-35.5); Mean Corpuscular Hemoglobin 33.6 pg (28.0-33.3); Mean Corpuscular Volume 97.6 fL (83.0-100.0); Mean Platelet Volume 9.4 fL (9.4-12.4); Monocytes # 1.4 K/mcL (0.0-1.3); Monocytes % 12.1 %; Neutrophils # 8.8 K/mcL (1.6-8.9); Platelet Count 327 K/mcL (140-400); Red Blood Count 3.78 M/mcL (3.82-4.97); Red Cell Distribution Width 12.9 % (11.5-14.5)
[2017-03-31 07:41] LABS: BUN/Creatinine Ratio 21 (6-26); Blood Urea Nitrogen 13 mg/dL (7-20); Carbon Dioxide 27 mEq/L (19-29); Chloride 103 mEq/L (98-109); Glucose 96 mg/dL (70-99); Osmolality,Calculated 284 (280-300); Potassium 3.4 mEq/L (3.5-4.5); Sodium 137 mEq/L (136-145); eGFR For African Americans > 60 (> 60); eGFR For Non-African Americans > 60 (> 60)
[2017-03-31] MEDS: Budesonide/Formoterol 160/4.5 MDI IH SCH ×2 (08:07→20:38)
[2017-03-31] MEDS: hydrALAZINE 25 MG TABLET PO SCH ×3 (09:51→20:47)
[2017-03-31] MEDS: *HR* LORazepam 2 MG/ML VIAL IVP PRN ×2 (11:16→23:37)
--- NOTE | 2017-03-31 12:27 | Internal Med Progress Note ---
Date of Encounter: 03/31/17 Time of Encounter: 09:30 - Assessment and plan (1) Acute encephalopathy Current Visit: Yes Status: Acute Assessment and plan: unclear causation at this time. Starting this morning, patient became altered. During my examination of her early this morning, patient was lying diagonally in her bed with pillow over her head. Patient continually stating that she could not breathe and would not answer any other questions or consent to any type of physical examination. She was then seen and reexamined with her present at which time, she was able sit upright in the bed and able to answer simple questions. A nasal cannula was placed on the patient and her shortness of breath had improved slightly. states that a year and a half ago, patient had the same symptoms but at that time, she was hyponatremic and once her sodium levels normalized, her mental status normalized as well. states that over the last year and a half up until 2 or 3 weeks ago, patient was normal. He states he will and differences time around that her sodium levels have been normal. Chest x-ray negative. Head CT negative. Brain MRI negative for acute processes. Abdominal CT without acute processes and revealing AAA and improving bronchitis. Leukocytosis is trending down-no obvious signs of infection at this time, suspect stress related. Urinalysis negative. CSF unremarkable thus far with CSF culture negative. Tox screen however positive for benzos and marijuana. Has been adamantly states the patient has not had any controlled substances since she was admitted. Informed the it would be unlikely for benzos to stay in her system in the 10 days since she has been discharged. It appears as if the patient was treated for possible alcohol withdrawal during her last admission. According to her , they drink 2-3 beers at night, but not every night. is adamant that this is "not alcohol withdrawal." states that the patient is always "jittery and nervous." He states that they have been for 30 years and this is not new, but what is new is the altered mental status and confusion. He states that they have had increased stress at home with family reunions, etc. It could be a psychological component to this, but will rule out metabolic etiologies. We will check B12, folate, TSH, LDH, PTH, cortisol, VBGs. She was given 1 mg of Ativan IV and appears to have rate returned to her baseline which would be consistent with several etiologies including withdrawal, psychiatric issues. We will continue to monitor and utilize her as a resource. We will bring both neuro and psych on board for further evaluation. ITS Impressions Chest X-Ray 03/30/17 07:01 IMPRESSION: COPD. Atelectasis versus scarring at the bilateral lung bases, stable. D/ / Arnold Yusuf MD / rAnold Yusuf MD Interpreting Provider: Arnold Yusuf MD Head CT 03/30/17 07:01 IMPRESSION: No acute intracranial abnormality. Mild chronic ischemic changes. D/ / Navjot Rosales MD / Navjot Rosales MD Interpreting Provider: Navjot Rosales MD Brain MRI 03/30/17 14:17 IMPRESSION: 1. No acute intracranial abnormality. 2. Mild chronic white matter microvascular ischemic changes. 3. Bilateral mastoid effusions. D/ / Zenon Haro MD / Zenon Haro MD Interpreting Provider: Zenon Haro MD Abdomen/Pelvis CT 03/30/17 19:00 IMPRESSION: 1. No pancreatic cystic or solid mass. No evidence of acute abnormality. 2. Improving patchy lung base bronchitis/bronchiolitis. 3. 1.3 cm infrarenal right anterolateral abdominal aortic saccular aneurysm. 4. Bilateral asymmetric hip arthropathy more prominent on the right. Anterior superior acetabular intraosseous cysts with adjacent complex soft tissue cystic extension suggesting chronic labral tear with a paralabral cyst. D/ / 03/30/2017 18:43:20 Frank Sorenson MD / mariya Interpreting Provider: Frank Sorenson MD (2) Delirium Current Visit: Yes Status: Acute Assessment and plan: Currently lucid, see prior note for acute encephalopathy (3) Leukocytosis Current Visit: Yes Status: Acute Assessment and plan: Trending down, suspect stress-related, blood cultures pending. CSF culture negative. Urinalysis negative. No signs of pneumonia. (4) Abnormal toxicological findings Current Visit: Yes Status: Acute Assessment and plan: Tox screen positive for benzos and marijuana. Patient state that she has not used any benzos since her discharge 8 days ago, unlikely although not impossible that they would still be in her system from 8 days ago. We will continue to investigate. (5) Pancreatic mass Current Visit: No Status: Chronic Assessment and plan: appears stable- checking lipase, amylase, crp (6) COPD exacerbation Current Visit: No Status: Acute Assessment and plan: She is complaining of not being able to breathe- will treat for an acute exacerbation. Lung sounds difficult to ascertain as she was screaming during my assessment of her. Stable on room air, but appears to improve with supplemental oxygen- will continue prn. also treating for possible panic attacks- will monitor. (7) Hyponatremia Current Visit: No Status: Inactive Assessment and plan: Sodium levels have been normal since admission, we will trend (8) Lung mass Current Visit: No Status: Chronic Assessment and plan: Plain films from this visit unremarkable. Patient did have a CTA on 03/18/17 with severe emphysematous changes and fibrotic changes bilaterally with possible superimposed pneumonia, right upper lobe tree-in-bud appearance, 6 mm nodule, spiculated. We will repeat CT at this time given that patient is complaining of not being able to breathe. ITS Impressions Chest X-Ray 03/30/17 07:01 IMPRESSION: COPD. Atelectasis versus scarring at the bilateral lung bases, stable. D/ / Arnold Yusuf MD / Arnold Yusuf MD Interpreting Provider: Arnold Yusuf MD (9) DVT prophylaxis Current Visit: No Status: Acute Assessment and plan: Subcutaneous heparin (10) Hypertension Current Visit: Yes Status: Chronic Assessment and plan: Hypertensive at times however she has been agitated at times, will continue to address her agitation and altered mental status. We will trend Qualifiers: Hypertension type: essential hypertension Qualified Code(s): I10 - Essential (primary) hypertension (11) Anxiety Current Visit: No Status: Chronic Assessment and plan: appears severe and uncontrolled. Would likely benefit from Benzo treatment- stating that their son works at the [employer] and he told them that the Hydroxyzine she was prescribed from her last visit would be "a waste of time" so it does not appear as if she has taken this medication. [facility] report negative for any controlled substance prescriptions. (12) COPD (chronic obstructive pulmonary disease) Current Visit: Yes Status: Chronic Qualifiers: COPD type: emphysema Emphysema type: panlobular Qualified Code(s): J43.1 - Panlobular emphysema (13) Hypertensive urgency Current Visit: Yes Status: Resolved - Time Spent With Patient Greater than 35 minutes (several reassessments and conversation with her ) - Subjective Interval history: Patient seen and examined. On examination, patient has her feet over the edge of the bed with the top half of her body lying diagonally across the bed with a pillow over her head. Patient continually stating that she cannot breathe and tells staff to "go away." Patient unable to answer questions at this time and continually states that she cannot breathe. Patient was then seen and reexamined approximately 20 minutes later when her had arrived. With her present, patient continues to state that she cannot breathe however she is much more calm and is no longer writhing and covering her head of the bed. She now is sitting upright and is able to answer simple orientation questions. She continues to have inappropriate outbursts that are unintelligible. Rest of the history was obtained from her who states that she acted like this a year and a half ago which was attributed to low sodium levels and once his low sodium levels were corrected, she was normal. He states that she had been normal for the last year and a half up until approximately 2 or 3 weeks ago when she started to have these outbursts again. states the only drink 2-3 beers a night and he states that they do not drink every night. - Constitutional Vitals: Temp Pulse Resp BP Pulse Ox 98.2 F 89 21 133/88 98 03/31/17 11:05 03/31/17 11:05 03/31/17 11:05 03/31/17 11:05 03/31/17 11:05 General appearance: Present: cooperative, disheveled, mild distress, A&O X 3, pleasant, answers questions appropriately (at times with present) - Head Head exam: Present: atraumatic, normocephalic - Eye Eye exam: Present: PERRL, conjuntiva pink, sclera anicteric Pupils: Present: PERRL - Neck Neck exam general surgery: Present: supple, trachea midline. Absent: lymphadenopathy - Respiratory Respiratory exam: Present: decreased breath sounds. Absent: accessory muscle use, rales, respiratory distress, rhonchi, wheezes - Cardiovascular Cardiovascular exam: Present: RRR, +S1, +S2, tachycardia (at times while upset) . Absent: diastolic murmur, gallop, rubs, systolic murmur - GI/Abdominal GI/Abdominal exam: Present: normal bowel sounds, soft, no peritoneal signs. Absent: distended, tenderness - Extremities Exam Extremities exam: Present: warm, radial pulses palpable and symetrical. Absent : calf tenderness, cyanotic, pedal edema - Neurological Exam Neurological exam: Present: alert, altered, CN II-XII intact, oriented X3, no focal deficits, strengths equal and symetr throughout. Absent: pronater drift, facial droop, speech deficit - Expanded Neurological Exam Neurological exam expanded: Present: protecting the airway Patient oriented to: Present: person, place, time Speech: Present: fluid speech, garbled (at times) Neuro motor strength exam: LUE: 5, RUE: 5, LLE: 5, RLE: 5 Coma Scale Eye Opening: Spontaneous Coma Scale Motor Response: Obeys Commands Coma Scale Verbal Response: Confused Coma Scale Total: 14 - Psychiatric Psychiatric exam: Present: agitated, anxious - Expanded Psychiatric Exam Focused psych exam: Present: perseverating (on not being able to breath), pressured speech, psychomotor agitation, restlessness - Skin Skin exam: Present: dry, intact, pallor, warm Internal Medicine: Result - Labs CBC & Chem 7: 03/31/17 07:05 03/31/17 07:05 Labs: Short CBC 03/31/17 Range/Units 07:05 WBC 11.6 H (4.3-11.1) K/mcL Hgb 12.7 (11.5-15.4) g/dL Hct 36.9 (35.3-44.9) % Plt Count 327 (140-400) K/mcL Neutrophils # 8.8 (1.6-8.9) K/mcL BMP 03/31/17 07:05 Sodium 137 Potassium 3.4 L Chloride 103 Carbon Dioxide 27 BUN 13 Creatinine 0.63 Glucose 96 Calcium 9.0 - ABG Interpretation ABG results: PT/INR, D-dimer PT 9.9 Seconds (9.4-12.1) 03/30/17 06:51 - Impressions Impressions Brain MRI 03/30/17 14:17 IMPRESSION: 1. No acute intracranial abnormality. 2. Mild chronic white matter microvascular ischemic changes. 3. Bilateral mastoid effusions. D/ / Zenon Haro MD / Zenon Haro MD Interpreting Provider: Zenon Haro MD Abdomen/Pelvis CT 03/30/17 19:00 IMPRESSION: 1. No pancreatic cystic or solid mass. No evidence of acute abnormality. 2. Improving patchy lung base bronchitis/bronchiolitis. 3. 1.3 cm infrarenal right anterolateral abdominal aortic saccular aneurysm. 4. Bilateral asymmetric hip arthropathy more prominent on the right. Anterior superior acetabular intraosseous cysts with adjacent complex soft tissue cystic extension suggesting chronic labral tear with a paralabral cyst. D/ / 03/30/2017 18:43:20 Frank Sorenson MD / mariya Interpreting Provider: Frank Sorenson MD Consult Discharge Plan - Plan Referrals: Tj Ventura MD [Primary Care Provider] -
[2017-03-31 13:44] LABS: VBG PH 7.38 pH Units (7.32-7.42)
[2017-03-31 14:00] LABS: Amylase 62 Units/L (25-125); C-Reactive Protein 59 mg/L (Less than 5)
[2017-03-31 14:41] LABS: Folate 15.5 ng/mL (7.0-31.4)
--- NOTE | 2017-03-31 15:16 | Psychiatry Progress Note ---
Date of Encounter: 03/31/17 Time of Encounter: 14:45 Subjective Interval history: Requested psychiatric consultation was received. Patient was not in her room and nursing staff report that she is having an imaging procedure. We will revisit the patient's for evaluation tomorrow. Results - Vital Signs Vital Signs: Temp Pulse Resp BP Pulse Ox 98.6 F 83 16 159/88 95 03/31/17 15:11 03/31/17 15:11 03/31/17 15:11 03/31/17 15:11 03/31/17 15:11 - Labs Labs: Laboratory Results - last 24 hr 03/31/17 03/31/17 03/31/17 07:05 07:05 13:26 WBC 11.6 H RBC 3.78 L Hgb 12.7 Hct 36.9 MCV 97.6 MCH 33.6 H MCHC 34.4 RDW 12.9 Plt Count 327 MPV 9.4 Immature Gran % 0.9 Seg Neutrophils % 76.0 Lymphocytes % 9.7 Monocytes % 12.1 Eosinophils % 0.9 Basophils % 0.4 Neutrophils # 8.8 Lymphocytes # 1.1 Monocytes # 1.4 H Eosinophils # 0.1 Basophils # 0.1 VBG pH VBG pCO2 VBG pO2 VBG HCO3 Sodium 137 Potassium 3.4 L Chloride 103 Carbon Dioxide 27 BUN 13 Creatinine 0.63 Est GFR ( Amer) > 60 Est GFR (Non-Af Amer) > 60 BUN/Creatinine Ratio 21 Glucose 96 Calculated Osmolality 284 Calcium 9.0 Phosphorus Lactate Dehydrogenase 202 C-Reactive Protein Amylase Lipase Vitamin B12 Folate PTH Intact 03/31/17 03/31/17 03/31/17 13:26 13:26 13:26 WBC RBC Hgb Hct MCV MCH MCHC RDW Plt Count MPV Immature Gran % Seg Neutrophils % Lymphocytes % Monocytes % Eosinophils % Basophils % Neutrophils # Lymphocytes # Monocytes # Eosinophils # Basophils # VBG pH 7.38 VBG pCO2 49 VBG pO2 29 VBG HCO3 29.0 H Sodium Potassium Chloride Carbon Dioxide BUN Creatinine Est GFR ( Amer) Est GFR (Non-Af Amer) BUN/Creatinine Ratio Glucose Calculated Osmolality Calcium Phosphorus 3.2 Lactate Dehydrogenase C-Reactive Protein Amylase Lipase 27 Vitamin B12 Folate PTH Intact 03/31/17 03/31/17 03/31/17 13:26 13:26 13:26 WBC RBC Hgb Hct MCV MCH MCHC RDW Plt Count MPV Immature Gran % Seg Neutrophils % Lymphocytes % Monocytes % Eosinophils % Basophils % Neutrophils # Lymphocytes # Monocytes # Eosinophils # Basophils # VBG pH VBG pCO2 VBG pO2 VBG HCO3 Sodium Potassium Chloride Carbon Dioxide BUN Creatinine Est GFR ( Amer) Est GFR (Non-Af Amer) BUN/Creatinine Ratio Glucose Calculated Osmolality Calcium Phosphorus Lactate Dehydrogenase C-Reactive Protein 59 H Amylase 62 Lipase Vitamin B12 563 Folate 15.5 PTH Intact 56.5 - Impressions ITS Impressions Brain MRI 03/30/17 14:17 IMPRESSION: 1. No acute intracranial abnormality. 2. Mild chronic white matter microvascular ischemic changes. 3. Bilateral mastoid effusions. D/ / Zenon Haro MD / Zenon Haro MD Interpreting Provider: Zenon Haro MD Abdomen/Pelvis CT 03/30/17 19:00 IMPRESSION: 1. No pancreatic cystic or solid mass. No evidence of acute abnormality. 2. Improving patchy lung base bronchitis/bronchiolitis. 3. 1.3 cm infrarenal right anterolateral abdominal aortic saccular aneurysm. 4. Bilateral asymmetric hip arthropathy more prominent on the right. Anterior superior acetabular intraosseous cysts with adjacent complex soft tissue cystic extension suggesting chronic labral tear with a paralabral cyst. D/ / 03/30/2017 18:43:20 Frank Sorenson MD / mariya Interpreting Provider: Frank Sorenson MD Consult Discharge Plan - Plan Referrals: Tj Ventura MD [Primary Care Provider] -
[2017-03-31 15:36] LABS: Thyroid Stimulating Hormone 1.36 mcIU/mL (0.350-4.840)
[2017-03-31] MEDS: predniSONE 20 MG TABLET PO SCH (15:41)
[2017-03-31] MEDS: Ipratropium/Albuterol Neb 3 ML IH SCH ×3 (16:43→23:33)
--- NOTE | 2017-03-31 17:39 | Neurology Progress Note ---
Date of Encounter: 03/31/17 Time of Encounter: 17:37 Assessment and Plan (1) COPD exacerbation Current Visit: No Status: Acute Patient has recent history of pneumonia on top of chronic COPD and symptoms indicate a lingering COPD/pneumonia without significant systemic infectious symptoms. No evidence of [facility] [employer] pathology, due to normal MRI of brain, normal CSF study, lack of fever, headache and non focal neurological examination. The symptoms likely secondary to diffuse encephalopathy that can complicated by COPD , CO2 retention, history of alcohol use/withdrawal. ABG recommended and in terms of neurological perspective, no further testing recommended. Please continue medical and supportive care (2) Delirium Current Visit: Yes Status: Acute Subjective Principal diagnosis: delirium Interval history: Patient is a 66 year old woman with PMH significant for COPD, recent history of Pneumonia, HTN who developed worsening mental status changes. Patient was admitted to [facility] on 03/18/2017 due to SOB, pneumonia and hyponatremia. Was discharged home on 03/22/2017 with oral antibiotics. She went home but continues to have confusion and mental status changes, which actually worsened in the last few days. Son reports that she has developed anger, outburst, cursing and confusion which is not of her character. Did mention that one year ago, she was sent to [facility] for pneumonia and after discharge she was improving every day but this time she was not. Initial CT of head showed no acute changes. MRI of brain was read as no acute intracranial abnormality. CSF study was normal. Patient has no fever, no headaches, no nuchal rigidity, no leucocytosis on her CBC with differentials. Metabolic panel shows no significant abnormality to explain her symptoms. No focal weakness reported no speech difficulty Objective - Constitutional Vitals: Temp Pulse Resp BP Pulse Ox 98.6 F 83 16 159/88 95 03/31/17 15:11 03/31/17 15:11 03/31/17 15:11 03/31/17 15:11 03/31/17 15:11 - Neurological Exam Sensorimotor examination: Present: intact Motor Examination: Present: grossly full strength in all extremities Motor examination - right side: 5/5: deltoids, biceps, triceps, wrist flexion, wrist extension, machine container washer, hip flexors, tibialis Anterior, quadriceps, toe extension (EHL), plantarflexion Motor examination - left side: 5/5: deltoids, biceps, triceps, wrist flexion, wrist extension, hip flexors, machine container washer, quadriceps, tibialis Anterior, toe extension (EHL), plantarflexion Sensation intact: Present: intact Posture: Present: other (None) Reflex and gait examination: intact Reflexes: Biceps: 2+, Triceps: 2+, Brachioradialis: 2+, Patella: 2+, Achilles: 2 + Mental Status Examination: Present: awake, alert, oriented to person, oriented to place, oriented to time, follows commands appropriately, answers questions appropriately, no agnosia, no aphasia, no aproxia, delerious (Patient answers question appropriately, keep talking with intact language unable to interrupt. Able to tell a whole complex story regarding her exeriencing with C-ray department. ) Cranial nerve examination: Present: PERRL, EOMI, visual mosher intact, corneal reflexes brisk symmetrically, sensory to face intact, mastication intact, no facial asymmetry is present, no dysarthria, hearing is intact symmetrically, soft palate elevates bilaterally upon phonation, gag reflex intact, flexes SCM and trapezius muscles symmetrically with full power, tongue protrudes midline (d ) Results - Laboratory Findings CBC and BMP: 03/31/17 07:05 03/31/17 07:05 Abnormal lab findings: Abnormal lab results WBC 11.6 K/mcL (4.3-11.1) H 03/31/17 07:05 RBC 3.78 M/mcL (3.82-4.97) L 03/31/17 07:05 MCH 33.6 pg (28.0-33.3) H 03/31/17 07:05 Monocytes # 1.4 K/mcL (0.0-1.3) H 03/31/17 07:05 APTT 25.7 Seconds (26.0-36.0) L 03/30/17 06:51 VBG HCO3 29.0 mEq/L (21-27) H 03/31/17 13:26 Potassium 3.4 mEq/L (3.5-4.5) L 03/31/17 07:05 Ammonia 11 mcmol/L (18-72) L 03/30/17 06:51 C-Reactive Protein 59 mg/L (Less than 5) H 03/31/17 13:26 Albumin 3.4 g/dL (3.5-5.0) L 03/30/17 06:51 Albumin/Globulin Ratio 1.0 (1.1-2.2) L 03/30/17 06:51 Urine Clarity Cloudy (Clear) A 03/30/17 08:30 Ur Squamous Epith Cells Moderate per lpf (None-Few) H 03/30/17 08:30 U Benzodiazepines Scrn Positive ng/mL (Rzlawq=[id number]) H 03/30/17 08:30 U Marijuana (THC) Screen Positive ng/mL (Cutoff = 50) H 03/30/17 08:30 Consult Discharge Plan - Plan Referrals: Tj Ventura MD [Primary Care Provider] -
[2017-03-31 18:46] LABS: ABG Base Excess 2.3 mEq/L (-2.0 to 3.0); ABG Oxygen Saturation 93 % (95-98); ABG PCO2 32 mmHg (35-45); ABG PO2 62 mmHg (85-104)
[2017-04-01] MEDS: Ipratropium/Albuterol Neb 3 ML IH SCH ×5 (03:42→20:25)
[2017-04-01 05:14] LABS: Basophils % 0.1 %; Hematocrit 34.8 % (35.3-44.9); Hemoglobin 11.9 g/dL (11.5-15.4); Immature Granulocytes % 0.7 % (0-4); Lymphocytes # 0.8 K/mcL (0.6-4.6); Lymphocytes % 7.4 %; Mean Corpuscular HGB Conc 34.2 g/dL (31.6-35.5); Mean Corpuscular Hemoglobin 33.3 pg (28.0-33.3); Mean Corpuscular Volume 97.5 fL (83.0-100.0); Mean Platelet Volume 9.7 fL (9.4-12.4); Monocytes # 0.8 K/mcL (0.0-1.3); Monocytes % 7.1 %; Platelet Count 304 K/mcL (140-400); Red Blood Count 3.57 M/mcL (3.82-4.97); Red Cell Distribution Width 12.9 % (11.5-14.5); Segmented Neutrophils % 84.7 %
[2017-04-01 05:25] LABS: BUN/Creatinine Ratio 18 (6-26); Blood Urea Nitrogen 11 mg/dL (7-20); Calcium 9.4 mg/dL (8.6-10.8); Carbon Dioxide 23 mEq/L (19-29); Chloride 104 mEq/L (98-109); Glucose 126 mg/dL (70-99); Osmolality,Calculated 279 (280-300); Potassium 4.7 mEq/L (3.5-4.5); Sodium 134 mEq/L (136-145); eGFR For African Americans > 60 (> 60); eGFR For Non-African Americans > 60 (> 60)
[2017-04-01] MEDS: *HR* Heparin 5,000 UNIT/ML VIAL SQ SCH ×2 (05:30→16:45)
[2017-04-01] MEDS: Budesonide/Formoterol 160/4.5 MDI IH SCH ×2 (07:47→20:24)
--- NOTE | 2017-04-01 08:22 | Event Note ---
Date of Encounter: 04/01/17 Time of Encounter: 19:00 I stopped in to see the patient prior to leaving for the night. On reexamination, pt was alert and oriented x3 and conversing with her and staff. She was noted to be quite verbose with rapid, pressured speech. She was also noted to be going off on frequent tangents with loose associations and most of the time, I was unable to follow her train of thought or follow her in conversation. She appeared to be in a manic state that is complicated with periods of confusion and paranoia. Patient stating "My doctor wouldn't see me this morning and you guys are lying to me." She also stated that she did not sleep much last night which could be playing a factor. I asked her if the patient has periods of "going 90 miles per hour" as he puts it for days at a time followed by increased fatigue. He denied this pattern. He stated that "She always moves at 90 miles per hour, she's been like that since I met her 30 years ago. She's just the jittery, anxious type." stating that the episode of confusion this am was consistent with prior episodes, but this one lasted longer than usual. Per , "It took me 2 hours to get her out of it this morning, and it usually takes me around 15 minutes." Appreciate psychiatry's input.
[2017-04-01] MEDS: predniSONE 20 MG TABLET PO SCH (09:19)
[2017-04-01] MEDS: hydrALAZINE 25 MG TABLET PO SCH ×3 (09:19→20:17)
--- NOTE | 2017-04-01 10:24 | Neurology Progress Note ---
Date of Encounter: 04/01/17 Time of Encounter: 08:20 Assessment and Plan (1) Delirium Current Visit: Yes Status: Acute Patient was alert and oriented to herself, year, and she was in the hospital but thought she was in a Hospital. Patient was able to follow commands and directions throughout exam. No significant findings on neurologic exam. Patient seen to get anxious periodically and would say she short of breath throughout the exam. Patient's ABG showed alkalosis and PO2 7.5, PCO2 and PO2 were low at 32 and 62 respectively. Bicarbonate 29 patient has a mixed alkalosis most likely from conversation from increased bicarbonate. Unsure if this is because of a VQ mismatch. Recommendations is to assess patient for possible PE secondary to patient's ABG findings and symptoms of shortness of breath. Subjective Principal diagnosis: delirium Interval history: Seen and examined at bedside this a.m. Patient continues to complain of shortness of breath. Patient's O2 sats reflect normal saturation levels. Patient also states she is pain all over. When asked to localize any specific areas or point to the pain patient is unable to do so. Patient is currently afebrile vital signs normal ranges and in no acute distress. Objective - Constitutional Vitals: Temp Pulse Resp BP Pulse Ox 98.6 F 79 16 140/77 99 04/01/17 06:57 04/01/17 06:57 04/01/17 06:57 04/01/17 06:57 04/01/17 09:15 General appearance: Present: A&O X 2 (Self and date. Patient knows she is in a hospital but thinks she is at [facility]), no acute distress, thin. Absent : answers questions appropriately - Head Head exam: Present: atraumatic, normocephalic - Eye Eye exam: Present: conjunctival injection, EOMI (Patient does not follow directions to follow my finger and stares directly at me.), PERRL - Extremities Exam Extremities exam: Present: normal capillary refill, warm, radial pulses palpable and symetrical. Absent: calf tenderness, cyanotic, pedal edema - Back Exam Back exam: Present: full ROM, normal inspection. Absent: CVA tenderness (L), CVA tenderness (R) - Neurological Exam Sensorimotor examination: Present: intact Motor Examination: Present: grossly full strength in all extremities Motor examination - right side: 5/5: deltoids, biceps, triceps, wrist flexion, wrist extension, residential support worker, hip flexors, tibialis Anterior, quadriceps, toe extension (EHL), plantarflexion Motor examination - left side: 02/06: deltoids, biceps, triceps, wrist flexion, wrist extension, hip flexors, residential support worker, quadriceps, tibialis Anterior, toe extension (EHL), plantarflexion Sensation intact: Present: intact, light touch Posture: Present: other (None) Reflex and gait examination: intact Reflexes: Biceps: 2+, Triceps: 2+, Brachioradialis: 2+, Patella: 2+, Achilles: 2 + Mental Status Examination: Present: awake, alert, oriented to person, oriented to place, oriented to time, follows commands appropriately, answers questions appropriately, no agnosia, no aphasia, no aproxia, answers questions by nodding yes or no, rambling (Patient will ramble along about "horses horses horses "repeatedly patient also blurts out questions about raspberries) Cranial nerve examination: Present: PERRL, EOMI, visual mosher intact, corneal reflexes brisk symmetrically, sensory to face intact, mastication intact, no facial asymmetry is present, no dysarthria, hearing is intact symmetrically, soft palate elevates bilaterally upon phonation, gag reflex intact, flexes SCM and trapezius muscles symmetrically with full power, tongue protrudes midline (d ) Cerebellar examination: Present: performs finger to nose and heel to stephens symmetrically without ataxia, no difficulty with rapid alternating movements Results - Laboratory Findings CBC and BMP: 04/01/17 04:47 04/01/17 04:47 Abnormal lab findings: Abnormal lab results RBC 3.57 M/mcL (3.82-4.97) L 04/01/17 04:47 Hct 34.8 % (35.3-44.9) L 04/01/17 04:47 Neutrophils # 9.0 K/mcL (1.6-8.9) H 04/01/17 04:47 APTT 25.7 Seconds (26.0-36.0) L 03/30/17 06:51 ABG pH 7.50 pH Units (7.32-7.45) H 03/31/17 18:35 ABG pCO2 32 mmHg (35-45) L 03/31/17 18:35 ABG pO2 62 mmHg (85-104) L 03/31/17 18:35 ABG O2 Saturation 93 % (95-98) L 03/31/17 18:35 VBG HCO3 29.0 mEq/L (21-27) H 03/31/17 13:26 Sodium 134 mEq/L (136-145) L 04/01/17 04:47 Potassium 4.7 mEq/L (3.5-4.5) H D 04/01/17 04:47 Glucose 126 mg/dL (70-99) H 04/01/17 04:47 Calculated Osmolality 279 (280-300) L 04/01/17 04:47 Ammonia 11 mcmol/L (18-72) L 03/30/17 06:51 C-Reactive Protein 59 mg/L (Less than 5) H 03/31/17 13:26 Albumin 3.4 g/dL (3.5-5.0) L 03/30/17 06:51 Albumin/Globulin Ratio 1.0 (1.1-2.2) L 03/30/17 06:51 Urine Clarity Cloudy (Clear) A 03/30/17 08:30 Ur Squamous Epith Cells Moderate per lpf (None-Few) H 03/30/17 08:30 U Benzodiazepines Scrn Positive ng/mL (Uylxah=102) H 03/30/17 08:30 U Marijuana (THC) Screen Positive ng/mL (Cutoff = 50) H 03/30/17 08:30 - Diagnostic Findings EKG: image reviewed CT scan - abdomen: report reviewed CT scan - chest: report reviewed CT scan - pelvic: report reviewed Additional findings: Chest X-Ray 03/30/17 07:01 IMPRESSION: COPD. Atelectasis versus scarring at the bilateral lung bases, stable. D/ / Arnold Yusuf MD / Arnold Yusuf MD Interpreting Provider: Arnold Yusuf MD Head CT 03/30/17 07:01 IMPRESSION: No acute intracranial abnormality. Mild chronic ischemic changes. D/ / Navjot Rosales MD / Navjot Rosales MD Interpreting Provider: Navjot Rosales MD Brain MRI 03/30/17 14:17 IMPRESSION: 1. No acute intracranial abnormality. 2. Mild chronic white matter microvascular ischemic changes. 3. Bilateral mastoid effusions. D/ / Zenon Haro MD / Zenon Haro MD Interpreting Provider: Zenon Haro MD Abdomen/Pelvis CT 03/30/17 19:00 IMPRESSION: 1. No pancreatic cystic or solid mass. No evidence of acute abnormality. 2. Improving patchy lung base bronchitis/bronchiolitis. 3. 1.3 cm infrarenal right anterolateral abdominal aortic saccular aneurysm. 4. Bilateral asymmetric hip arthropathy more prominent on the right. Anterior superior acetabular intraosseous cysts with adjacent complex soft tissue cystic extension suggesting chronic labral tear with a paralabral cyst. D/ / 03/30/2017 18:43:20 Frank Sorenson MD / mariya Interpreting Provider: Frank Sorenson MD Chest CT 03/31/17 14:30 IMPRESSION: 1. Redemonstration of severe emphysema. 2. Improving asymmetric patchy lateral basilar pulmonary opacities more prominent on the right compared to the prior 03/18/2017 exam with near complete resolution of the 6 mm somewhat spiculated fissural nodule seen on the prior exam. 3. There is some mild nonspecific acute versus chronic right upper lobe subsegmental bronchiolitis. 4. Probable reactive mildly enlarged precarinal lymph node. 5. No findings concerning for primary lung malignancy. D/ / 03/31/2017 15:50:48 Frank Sorenson MD / aisha Interpreting Provider: Frank Sorenson MD Consult Discharge Plan - Plan Referrals: Tj Ventura MD [Primary Care Provider] -
--- NOTE | 2017-04-01 12:35 | Internal Med Progress Note ---
Date of Encounter: 04/01/17 Time of Encounter: 10:00 - Assessment and plan (1) Acute encephalopathy Current Visit: Yes Status: Acute Assessment and plan: At this point, with a considerable workup, her altered mental status appears to be psychiatric in etiology. Reversible, metabolic causes and essentially ruled out at this point. B12, folate, TSH, parathyroid, cortisol levels all normal. Leukocytosis has resolved, suspect stress related. No signs of acute infections. Chest x-ray negative. Head CT negative. Brain MRI negative for acute processes. Abdominal CT negative for acute processes. Urinalysis negative. CSF culture negative. Tox screen was positive for benzos and marijuana. Has been states that the patient has not received any benzos since her discharge approximately 2 weeks ago. Symptoms do not appear consistent with alcohol withdrawal. Similar to yesterday, in the morning hours, she becomes increasingly more confused and agitated. She is able to answer simple orientation questions but at times goes on tangents that are unable to be followed. states that overnight, patient got up to use the bathroom twice. He states on one of the occasions, she was completely independent and did not require any assistance. He states on the other occasion, she became very confused and attempted to climb the chang in the bathroom. Patient remembers both of these events and stated that when she was trying to climb the chang that she was trying to get back to her son and her grandchildren in stating that she needed to get away from the man and the room next to hers stating that he could not breathe because of sleep apnea, again I was unable to follow the rest of her explanation. She did receive Ativan last night at approximately 11:30 PM and the states that one of the time she went to the bathroom was before and one at times she went to his after the Ativan but he does not know which one. He does not know if the patient had her confused episode before after she received the Ativan. Neurology is on board, concern for CO2 retention ruled out. Psychiatry is also on board, appreciate their recommendations. It appears that the patient is in a manic state she has been unable to sleep the last couple nights. Unable to determine cause of her encephalopathy at this point however alcoholic, metabolic, septic, toxic causes ruled out essentially. 03/31/17 unclear causation at this time. Starting this morning, patient became altered. During my examination of her early this morning, patient was lying diagonally in her bed with pillow over her head. Patient continually stating that she could not breathe and would not answer any other questions or consent to any type of physical examination. She was then seen and reexamined with her present at which time, she was able sit upright in the bed and able to answer simple questions. A nasal cannula was placed on the patient and her shortness of breath had improved slightly. states that a year and a half ago, patient had the same symptoms but at that time, she was hyponatremic and once her sodium levels normalized, her mental status normalized as well. states that over the last year and a half up until 2 or 3 weeks ago, patient was normal. He states he will and differences time around that her sodium levels have been normal. Chest x-ray negative. Head CT negative. Brain MRI negative for acute processes. Abdominal CT without acute processes and revealing AAA and improving bronchitis. Leukocytosis is trending down-no obvious signs of infection at this time, suspect stress related. Urinalysis negative. CSF unremarkable thus far with CSF culture negative. Tox screen however positive for benzos and marijuana. Has been adamantly states the patient has not had any controlled substances since she was admitted. Informed the it would be unlikely for benzos to stay in her system in the 10 days since she has been discharged. It appears as if the patient was treated for possible alcohol withdrawal during her last admission. According to her , they drink 2-3 beers at night, but not every night. is adamant that this is "not alcohol withdrawal." states that the patient is always "jittery and nervous." He states that they have been for 30 years and this is not new, but what is new is the altered mental status and confusion. He states that they have had increased stress at home with family reunions, etc. It could be a psychological component to this, but will rule out metabolic etiologies. We will check B12, folate, TSH, LDH, PTH, cortisol, VBGs. She was given 1 mg of Ativan IV and appears to have rate returned to her baseline which would be consistent with several etiologies including withdrawal, psychiatric issues. We will continue to monitor and utilize her as a resource. We will bring both neuro and psych on board for further evaluation. ITS Impressions Chest X-Ray 03/30/17 07:01 IMPRESSION: COPD. Atelectasis versus scarring at the bilateral lung bases, stable. D/ / Arnold Yusuf MD / Arnold Yusuf MD Interpreting Provider: Arnold Yusuf MD Head CT 03/30/17 07:01 IMPRESSION: No acute intracranial abnormality. Mild chronic ischemic changes. D/ / Navjot Rosales MD / Navjot Rosales MD Interpreting Provider: Navjot Rosales MD Brain MRI 03/30/17 14:17 IMPRESSION: 1. No acute intracranial abnormality. 2. Mild chronic white matter microvascular ischemic changes. 3. Bilateral mastoid effusions. D/ / Zenon Haro MD / Zenon Haro MD Interpreting Provider: Zenon Haro MD Abdomen/Pelvis CT 03/30/17 19:00 IMPRESSION: 1. No pancreatic cystic or solid mass. No evidence of acute abnormality. 2. Improving patchy lung base bronchitis/bronchiolitis. 3. 1.3 cm infrarenal right anterolateral abdominal aortic saccular aneurysm. 4. Bilateral asymmetric hip arthropathy more prominent on the right. Anterior superior acetabular intraosseous cysts with adjacent complex soft tissue cystic extension suggesting chronic labral tear with a paralabral cyst. D/ / 03/30/2017 18:43:20 Frank Sorenson MD / mariya Interpreting Provider: Frank Sorenson MD (2) Delirium Current Visit: Yes Status: Acute Assessment and plan: Still confused at times but able to answer orientation questions. See prior note for acute encephalopathy (3) Leukocytosis Current Visit: Yes Status: Resolved Assessment and plan: Resolved, suspect stress-related, blood cultures negative. CSF culture negative. Urinalysis negative. No signs of pneumonia. (4) Abnormal toxicological findings Current Visit: Yes Status: Acute Assessment and plan: Tox screen positive for benzos and marijuana. Patient state that she has not used any benzos since her discharge 8 days ago, unlikely although not impossible that they would still be in her system from 8 days ago. We will continue to investigate. (5) Pancreatic mass Current Visit: No Status: Chronic Assessment and plan: appears stable- lipase and amylase normal (6) COPD exacerbation Current Visit: No Status: Acute Assessment and plan: She is complaining of not being able to breathe- will continue to treat for an acute exacerbation. Lung sounds clear to auscultation bilaterally with good aeration. Stable on room air. Also treating for possible panic attacks- will monitor. (7) Hyponatremia Current Visit: No Status: Acute Assessment and plan: Sodium levels have been normal since admission; slightly lowered today, we will trend (8) Lung mass Current Visit: No Status: Chronic Assessment and plan: Plain films from this visit unremarkable. Patient did have a CTA on 03/18/17 with severe emphysematous changes and fibrotic changes bilaterally with possible superimposed pneumonia, right upper lobe tree-in-bud appearance, 6 mm nodule, spiculated. Chest CT obtained which again revealed her severe emphysema with resolution of her spiculated mass noted [address] unremarkable. ITS Impressions Chest X-Ray 03/30/17 07:01 IMPRESSION: COPD. Atelectasis versus scarring at the bilateral lung bases, stable. D/ / Arnold Yusuf MD / Arnold Yusuf MD Interpreting Provider: Arnold Yusuf MD Chest CT 03/31/17 14:30 IMPRESSION: 1. Redemonstration of severe emphysema. 2. Improving asymmetric patchy lateral basilar pulmonary opacities more prominent on the right compared to the prior 03/18/2017 exam with near complete resolution of the 6 mm somewhat spiculated fissural nodule seen on the prior exam. 3. There is some mild nonspecific acute versus chronic right upper lobe subsegmental bronchiolitis. 4. Probable reactive mildly enlarged precarinal lymph node. 5. No findings concerning for primary lung malignancy. D/ / 03/31/2017 15:50:48 Frank Sorenson MD / aisha Interpreting Provider: Frank Sorenson MD (9) DVT prophylaxis Current Visit: No Status: Acute Assessment and plan: Subcutaneous heparin (10) Hypertension Current Visit: Yes Status: Chronic Assessment and plan: Hypertensive at times however she has been agitated at times, will continue to address her agitation and altered mental status. We will trend Qualifiers: Hypertension type: essential hypertension Qualified Code(s): I10 - Essential (primary) hypertension (11) Anxiety Current Visit: No Status: Chronic Assessment and plan: appears severe and uncontrolled. Would likely benefit from Benzo treatment- stating that their son works at the [employer] and he told them that the Hydroxyzine she was prescribed from her last visit would be "a waste of time" so it does not appear as if she has taken this medication. [place] report negative for any controlled substance prescriptions. Appreciate psychiatry's input. (12) COPD (chronic obstructive pulmonary disease) Current Visit: Yes Status: Chronic Qualifiers: COPD type: emphysema Emphysema type: panlobular Qualified Code(s): J43.1 - Panlobular emphysema (13) Hypertensive urgency Current Visit: Yes Status: Resolved - Subjective Interval history: Patient seen and examined. On examination, patient is lying diagonally in bed with her head covered by a pillow. She is alert and oriented x3 and answers all orientation questions appropriately but again makes comments that are unable to be followed or understood at times. Her states that she went to the bathroom twice overnight. One of the times, he states she had an upright , steady gait and was independent. The other time, she "went nuts and tried to climb the chang in the bathroom." Patient stating she remembers this incident and states she was "trying to get to my son and my grandkids because the sadiq next door couldn't sleep because he has apnea." Patient again continually stating that she "cannot breath for 24 hours now." She ate approximately half of her breakfast with her 's help- he states that her "coordination was off this morning, so I had to feed her." - Constitutional Vitals: Temp Pulse Resp BP Pulse Ox 98.3 F 83 16 126/64 92 04/01/17 11:59 04/01/17 11:59 04/01/17 11:59 04/01/17 11:59 04/01/17 11:59 General appearance: Present: cooperative, disheveled, mild distress, A&O X 3, pleasant, answers questions appropriately (at times with present) - Head Head exam: Present: atraumatic, normocephalic - Eye Eye exam: Present: PERRL, conjuntiva pink, sclera anicteric Pupils: Present: PERRL - Neck Neck exam general surgery: Present: supple, trachea midline. Absent: lymphadenopathy - Respiratory Respiratory exam: Present: CTAB. Absent: accessory muscle use, decreased breath sounds, rales, respiratory distress, rhonchi, wheezes - Cardiovascular Cardiovascular exam: Present: RRR, +S1, +S2. Absent: diastolic murmur, gallop, rubs, systolic murmur - GI/Abdominal GI/Abdominal exam: Present: normal bowel sounds, soft, no peritoneal signs. Absent: distended, tenderness - Extremities Exam Extremities exam: Present: warm, radial pulses palpable and symetrical. Absent : calf tenderness, cyanotic, pedal edema - Neurological Exam Neurological exam: Present: alert, altered, CN II-XII intact, oriented X3, no focal deficits, strengths equal and symetr throughout. Absent: pronater drift, facial droop, speech deficit - Expanded Neurological Exam Neurological exam expanded: Present: protecting the airway Patient oriented to: Present: person, place, time Speech: Present: fluid speech Neuro motor strength exam: LUE: 5, RUE: 5, LLE: 5, RLE: 5 Coma Scale Eye Opening: To Voice Coma Scale Motor Response: Obeys Commands Coma Scale Verbal Response: Confused Coma Scale Total: 13 - Psychiatric Psychiatric exam: Present: agitated. Absent: suicidal ideation - Expanded Psychiatric Exam Focused psych exam: Present: delusional, loose associations, perseverating, pressured speech, psychomotor agitation, restlessness - Skin Skin exam: Present: dry, intact, pallor, warm Internal Medicine: Result - Labs CBC & Chem 7: 04/01/17 04:47 04/01/17 04:47 Labs: Short CBC 04/01/17 Range/Units 04:47 WBC 10.7 (4.3-11.1) K/mcL Hgb 11.9 (11.5-15.4) g/dL Hct 34.8 L (35.3-44.9) % Plt Count 304 (140-400) K/mcL Neutrophils # 9.0 H (1.6-8.9) K/mcL BMP 04/01/17 04:47 Sodium 134 L Potassium 4.7 H D Chloride 104 Carbon Dioxide 23 BUN 11 Creatinine 0.62 Glucose 126 H Calcium 9.4 - ABG Interpretation ABG results: ABG ABG pH 7.50 pH Units (7.32-7.45) H 03/31/17 18:35 ABG pCO2 32 mmHg (35-45) L 03/31/17 18:35 ABG pO2 62 mmHg (85-104) L 03/31/17 18:35 ABG O2 Saturation 93 % (95-98) L 03/31/17 18:35 PT/INR, D-dimer PT 9.9 Seconds (9.4-12.1) 03/30/17 06:51 - Impressions Impressions Chest CT 03/31/17 14:30 IMPRESSION: 1. Redemonstration of severe emphysema. 2. Improving asymmetric patchy lateral basilar pulmonary opacities more prominent on the right compared to the prior 03/18/2017 exam with near complete resolution of the 6 mm somewhat spiculated fissural nodule seen on the prior exam. 3. There is some mild nonspecific acute versus chronic right upper lobe subsegmental bronchiolitis. 4. Probable reactive mildly enlarged precarinal lymph node. 5. No findings concerning for primary lung malignancy. D/ / 03/31/2017 15:50:48 Frank Sorenson MD / aisha Interpreting Provider: Frank Sorenson MD Consult Discharge Plan - Plan Referrals: Tj Ventura MD [Primary Care Provider] -
[2017-04-01] MEDS: Divalproex Sodium 125 MG CAPSULE PO SCH ×2 (14:18→20:17)
--- NOTE | 2017-04-01 14:29 | Consult Note ---
Date of Encounter: 04/01/17 Time of Encounter: 13:30 Assessment & Recommendation (1) Delirium due to multiple etiologies Current visit: Yes Status: Acute Assessment & Recommendation: Case was discussed in detail with Selina. We recommend: 1. Patient should abstain from alcohol And THC. The next 4-6 weeks 2. Possibility of manic episodes, treatment trial of mood stabilizer like Depakote 125 mg twice a day is recommended 3. Periodic check for hyponatremia on a weekly basis is recommended 4. Outpatient psychiatric follow-up is recommended. Thank you for consultation History of Present Illness Patient: new to practice Requesting Physician: Verona Moralez Reason for consult: Altered mental status History of present illness: Ms. Nichols is a 66 year old female admitted for treatment of hyponatremia and change in mental status with confusion and bizarre behavior. Review of the records indicates completed workup including imaging studies,labs, and a neurological consultation did not reveal any specific abnormalities. Patient has significant medical history of COPD hypertension, lung and pancreatic mass and history episodes of hyponatremia. History given by the indicates regular alcohol and marijuana use for the past 14 years. No previous psychiatric treatment or hospitalization. On interview patient displayed fluctuating level of alertness, her speech was clear but intermittently incoherent. She was calm and cooperative and her eye contact was intense at times. Her sodium level and blood gas were stabilized. CC: Verona Moralez Past Med Surg Social Fam HX - Past Medical History Medical history: COPD, hypertension - Past Psychiatric History Psychiatric history: Reports: no psych history - Past Surgical History Surgical History: no surgical history - Social History Smoking Status: Former smoker Smokeless Tobacco Status: No Alcohol use: occasionally Drug use: marijuana - Family History Father Adopted: No Family Member Ethnicity: Non- Living Status: Hx Family Cardiac Disorders: Yes Hx Family Respiratory Disorders: Yes Hx Family Cancer: No Hx Family GI Disorders: No Hx Family Endocrine Disorder: No Medications & Allergies Albuterol Sulfate [Albuterol Inhaler] 2 puff IH Q4-6H PRN 03/18/17 [History] Atenolol [Tenormin] 50 mg PO BID 03/18/17 [History] Losartan Potassium [Cozaar] 100 mg PO DAILY 03/18/17 [History] Amoxicillin/Clavulanate [Augmentin] 875 mg PO BIDWM #6 tablet 03/22/17 [Rx] Budesonide/Formoterol 160/4.5 [Symbicort 160/4.5] 2 puff IH BIDR 30 Days [Rx] HydrOXYzine 10 mg PO TID PRN #20 tablet 03/22/17 [Rx] hydrALAZINE [HydrALAZINE] 25 mg PO TID #90 tablet 03/22/17 [Rx] levoFLOXacin [Levaquin] 500 mg PO DAILY #3 tablet 03/22/17 [Rx] predniSONE [PredniSONE] 40 mg PO DAILY #5 tablet 03/22/17 [Rx] Allergies No Known Allergies Allergy (Verified 03/18/17 15:12) Mental Status Exam Patient orientation: Yes Person, Yes Time, Yes Place Level of alertness: Alert, Sedated Patient appearance: Appropriate, Well Groomed Behavior: calm, cooperative, anxious, distractible Psychomotor activity: Slowed Eye contact: Intense Contact Mood description: Anxious, Labile Affect description: congruent with mood, labile Speech pattern: Disorganized, Garbled Speech volume: Normal Thought process: Tangential, Disorganized Thought content: No Suicidal ideation, No Homicidal ideation, No Overt delusions Perceptual disturbances: No Auditory hallucinations, No Visual hallucinations Attention span: Capable of Focused Attention Memory description: Grossly Intact Patient reliability: Questionable Historian Intelligence estimate: Average Judgment: Limited Insight: Partial Results - Vital Signs Vital signs: Temp Pulse Resp BP Pulse Ox 98.3 F 83 16 126/64 92 04/01/17 11:59 04/01/17 11:59 04/01/17 11:59 04/01/17 11:59 04/01/17 11:59 - Labs Labs: Laboratory Last Values WBC 10.7 K/mcL (4.3-11.1) 04/01/17 04:47 RBC 3.57 M/mcL (3.82-4.97) L 04/01/17 04:47 Hgb 11.9 g/dL (11.5-15.4) 04/01/17 04:47 Hct 34.8 % (35.3-44.9) L 04/01/17 04:47 MCV 97.5 fL (83.0-100.0) 04/01/17 04:47 MCH 33.3 pg (28.0-33.3) 04/01/17 04:47 MCHC 34.2 g/dL (31.6-35.5) 04/01/17 04:47 RDW 12.9 % (11.5-14.5) 04/01/17 04:47 Plt Count 304 K/mcL (140-400) 04/01/17 04:47 MPV 9.7 fL (9.4-12.4) 04/01/17 04:47 Immature Gran % 0.7 % (0-4) 04/01/17 04:47 Seg Neutrophils % 84.7 % 04/01/17 04:47 Lymphocytes % 7.4 % 04/01/17 04:47 Monocytes % 7.1 % 04/01/17 04:47 Eosinophils % 0.0 % 04/01/17 04:47 Basophils % 0.1 % 04/01/17 04:47 Neutrophils # 9.0 K/mcL (1.6-8.9) H 04/01/17 04:47 Lymphocytes # 0.8 K/mcL (0.6-4.6) 04/01/17 04:47 Monocytes # 0.8 K/mcL (0.0-1.3) 04/01/17 04:47 Eosinophils # 0.0 K/mcL (0.0-0.6) 04/01/17 04:47 Basophils # 0.0 K/mcL (0.0-0.2) 04/01/17 04:47 PT 9.9 Seconds (9.4-12.1) 03/30/17 06:51 INR 0.9 03/30/17 06:51 APTT 25.7 Seconds (26.0-36.0) L 03/30/17 06:51 ABG pH 7.50 pH Units (7.32-7.45) H 03/31/17 18:35 ABG pCO2 32 mmHg (35-45) L 03/31/17 18:35 ABG pO2 62 mmHg (85-104) L 03/31/17 18:35 ABG HCO3 25.0 mEQ/L (21-27) 03/31/17 18:35 ABG Total CO2 26.0 mEq/L (20-26) 03/31/17 18:35 ABG O2 Saturation 93 % (95-98) L 03/31/17 18:35 ABG Base Excess 2.3 mEq/L (-2.0 to 3.0) 03/31/17 18:35 VBG pH 7.38 pH Units (7.32-7.42) 03/31/17 13:26 VBG pCO2 49 mmHg (41-51) 03/31/17 13:26 VBG pO2 29 mmHg (25-40) 03/31/17 13:26 VBG HCO3 29.0 mEq/L (21-27) H 03/31/17 13:26 Blood Gas Modality RA 03/31/17 18:35 Sodium 134 mEq/L (136-145) L 04/01/17 04:47 Potassium 4.7 mEq/L (3.5-4.5) H D 04/01/17 04:47 Chloride 104 mEq/L (98-109) 04/01/17 04:47 Carbon Dioxide 23 mEq/L (19-29) 04/01/17 04:47 BUN 11 mg/dL (7-20) 04/01/17 04:47 Creatinine 0.62 mg/dL (0.57-1.11) 04/01/17 04:47 Est GFR ( Amer) > 60 (> 60) 04/01/17 04:47 Est GFR (Non-Af Amer) > 60 (> 60) 04/01/17 04:47 BUN/Creatinine Ratio 18 (6-26) 04/01/17 04:47 Glucose 126 mg/dL (70-99) H 04/01/17 04:47 Calculated Osmolality 279 (280-300) L 04/01/17 04:47 Lactic Acid 1.0 mmol/L (0.5-2.2) 03/30/17 06:51 Calcium 9.4 mg/dL (8.6-10.8) 04/01/17 04:47 Phosphorus 3.2 mg/dL (2.3-4.7) 03/31/17 13:26 Total Bilirubin 1.1 mg/dL (0.2-1.2) 03/30/17 06:51 Direct Bilirubin 0.4 mg/dL (0.0-0.5) 03/30/17 06:51 Indirect Bilirubin 0.7 mg/dL (0.0-1.2) 03/30/17 06:51 AST 26 Units/L (5-34) 03/30/17 06:51 ALT 32 Units/L (0-55) 03/30/17 06:51 Alkaline Phosphatase 71 Units/L (38-126) 03/30/17 06:51 Ammonia 11 mcmol/L (18-72) L 03/30/17 06:51 Lactate Dehydrogenase 202 Units/L (159-327) 03/31/17 13:26 Troponin I 0.01 ng/mL (0-0.03) 03/30/17 06:51 C-Reactive Protein 59 mg/L (Less than 5) H 03/31/17 13:26 Serum Total Protein 6.8 g/dL (6.0-8.3) 03/30/17 06:51 Albumin 3.4 g/dL (3.5-5.0) L 03/30/17 06:51 Globulin 3.4 g/dL (2.4-3.5) 03/30/17 06:51 Albumin/Globulin Ratio 1.0 (1.1-2.2) L 03/30/17 06:51 Amylase 62 Units/L (25-125) 03/31/17 13:26 Lipase 27 Units/L (8-78) 03/31/17 13:26 Vitamin B12 563 pg/mL (213-816) 03/31/17 13:26 Folate 15.5 ng/mL (7.0-31.4) 03/31/17 13:26 TSH 1.360 mcIU/mL (0.350-4.840) 03/31/17 13:26 PTH Intact 56.5 pg/ml (8.5-72.5) 03/31/17 13:26 Random Cortisol 13.5 mcg/dl 03/31/17 13:26 Urine Color Yellow (Yellow) 03/30/17 08:30 Urine Clarity Cloudy (Clear) A 03/30/17 08:30 Urine pH 8.0 pH Units (5.0-8.0) 03/30/17 08:30 Ur Specific Pala 1.013 (1.010-1.025) 03/30/17 08:30 Urine Protein Negative mg/dL (Neg-Trace) 03/30/17 08:30 Urine Glucose (UA) Normal mg/dL (Normal) 03/30/17 08:30 Urine Ketones Negative mg/dL (Negative) 03/30/17 08:30 Urine Blood Negative (Negative) 03/30/17 08:30 Urine Nitrite Negative (Negative) 03/30/17 08:30 Urine Bilirubin Negative (Negative) 03/30/17 08:30 Urine Urobilinogen Normal mg/dL (Normal) 03/30/17 08:30 Ur Leukocyte Esterase Negative (Negative) 03/30/17 08:30 Urine Microscopic RBC 0-3 per hpf (0-3) 03/30/17 08:30 Urine Microscopic WBC 0-3 per hpf (0-3) 03/30/17 08:30 Ur Squamous Epith Cells Moderate per lpf (None-Few) H 03/30/17 08:30 Urine Bacteria None Seen per hpf (None-Few) 03/30/17 08:30 Hyaline Casts None Seen per lpf (None-Few) 03/30/17 08:30 Ur Culture Indicated? NO (NO) 03/30/17 08:30 CSF Volume 5.5 mL 03/30/17 12:00 CSF Appearance Clear (Clear) 03/30/17 12:00 CSF Color Colorless (Colorless) 03/30/17 12:00 CSF RBC < 0.002 M/mcL (0.000-0.002) 03/30/17 12:00 CSF Tot Nucleated Cells < 3 TNC/mcL (0-5) 03/30/17 12:00 CSF Seg Neutrophils TNP 03/30/17 12:00 CSF Band Neutrophils % TNP 03/30/17 12:00 CSF Lymphocytes % TNP 03/30/17 12:00 CSF Monocytes % TNP 03/30/17 12:00 CSF Eosinophils % TNP 03/30/17 12:00 CSF Basophils % TNP 03/30/17 12:00 CSF Other Cells % TNP 03/30/17 12:00 CSF Glucose 48 mg/dL (40-70) 03/30/17 12:00 CSF Xanth Comm Not Observed (Not Observe) 03/30/17 12:00 CSF Total Protein 37 mg/dL (15-45) 03/30/17 12:00 Urine Opiates Screen Negative ng/mL (Twwjrg=899) 03/30/17 08:30 Ur Barbiturates Screen Negative ng/mL (Tjakqf=686) 03/30/17 08:30 Ur Phencyclidine Scrn Negative ng/mL (Cutoff=25) 03/30/17 08:30 Ur Amphetamines Screen Negative ng/mL (Pahetq=0743) 03/30/17 08:30 U Benzodiazepines Scrn Positive ng/mL (Pboumj=817) H 03/30/17 08:30 Urine Cocaine Screen Negative ng/mL (Cutoff= 300) 03/30/17 08:30 U Marijuana (THC) Screen Positive ng/mL (Cutoff = 50) H 03/30/17 08:30 Ethyl Alcohol < 10 mg/dL (0-10) 03/30/17 06:51 Consult Discharge Plan - Plan Referrals: Tj Ventura MD [Primary Care Provider] -
[2017-04-01] MEDS ORDERED: 0.9 % Sodium Chloride 1,000 ML IVC SCH (16:15)
[2017-04-01] MEDS ORDERED: 0.9 % Sodium Chloride 500 ML IVC SCH ×2 (17:00)
[2017-04-02] MEDS: *HR* LORazepam 2 MG/ML VIAL IVP PRN (00:07)
[2017-04-02] MEDS: Ipratropium/Albuterol Neb 3 ML IH SCH ×7 (00:22→23:00)
[2017-04-02] MEDS ORDERED: *HR* Metoprolol 5 MG/5 ML VIAL IVP ONE (03:23)
[2017-04-02] MEDS ORDERED: *HR* LORazepam 2 MG/ML VIAL IVP ONE (03:51)
[2017-04-02] MEDS: *HR* Heparin 5,000 UNIT/ML VIAL SQ SCH ×2 (04:32→16:26)
[2017-04-02] MEDS: Budesonide/Formoterol 160/4.5 MDI IH SCH ×2 (07:40→19:32)
[2017-04-02 09:07] LABS: BUN/Creatinine Ratio 21 (6-26); Blood Urea Nitrogen 14 mg/dL (7-20); Calcium 9.3 mg/dL (8.6-10.8); Carbon Dioxide 25 mEq/L (19-29); Chloride 106 mEq/L (98-109); Glucose 98 mg/dL (70-99); Osmolality,Calculated 286 (280-300); Sodium 138 mEq/L (136-145); eGFR For African Americans > 60 (> 60); eGFR For Non-African Americans > 60 (> 60)
[2017-04-02] MEDS: predniSONE 20 MG TABLET PO SCH (10:05)
[2017-04-02] MEDS: hydrALAZINE 25 MG TABLET PO SCH ×3 (10:06→20:47)
[2017-04-02] MEDS: Divalproex Sodium 125 MG CAPSULE PO SCH (10:06)
[2017-04-02] MEDS ORDERED: *HR* LORazepam 2 MG/ML VIAL IVP PRN (12:16)
--- NOTE | 2017-04-02 14:08 | Internal Med Progress Note ---
Date of Encounter: 04/02/17 Time of Encounter: 09:00 (x45 minutes) - Assessment and plan (1) Acute encephalopathy Current Visit: Yes Status: Acute Assessment and plan: Patient did not sleep overnight despite getting 2 doses of Ativan. She is sitting in high [place] in bed with her eyes closed. She is intermittently screaming words such as "Bitch," "uncontrolled breathing" "egg" "I'm drowning". She will also say "Ramin" or "Lakeisha" and then start to cry (which is apparently a close family member that 5 years ago). She is refusing to eat and to take her medications. Her depakote was changed to IV and IVF were started. She will not follow commands, yet when asked questions directly, she screams out "No." Her behavior is consistent with sleep deprivation and underlying psychiatric etiology. Will request for psych to reevaluate her as it appears as if she may need inpatient psychiatric care at this point. Her lab values again this am were normal. This does not appear to be consistent with any reversible, metabolic causes. Appreciate psychiatry's input. Would also like to see her behavior if all of her family members were temporarily removed from the room. 04/01/17 At this point, with a considerable workup, her altered mental status appears to be psychiatric in etiology. Reversible, metabolic causes and essentially ruled out at this point. B12, folate, TSH, parathyroid, cortisol levels all normal. Leukocytosis has resolved, suspect stress related. No signs of acute infections. Chest x-ray negative. Head CT negative. Brain MRI negative for acute processes. Abdominal CT negative for acute processes. Urinalysis negative. CSF culture negative. Tox screen was positive for benzos and marijuana. Has been states that the patient has not received any benzos since her discharge approximately 2 weeks ago. Symptoms do not appear consistent with alcohol withdrawal. Similar to yesterday, in the morning hours, she becomes increasingly more confused and agitated. She is able to answer simple orientation questions but at times goes on tangents that are unable to be followed. states that overnight, patient got up to use the bathroom twice. He states on one of the occasions, she was completely independent and did not require any assistance. He states on the other occasion, she became very confused and attempted to climb the chang in the bathroom. Patient remembers both of these events and stated that when she was trying to climb the chang that she was trying to get back to her son and her grandchildren in stating that she needed to get away from the man and the room next to hers stating that he could not breathe because of sleep apnea, again I was unable to follow the rest of her explanation. She did receive Ativan last night at approximately 11:30 PM and the states that one of the time she went to the bathroom was before and one at times she went to his after the Ativan but he does not know which one. He does not know if the patient had her confused episode before after she received the Ativan. Neurology is on board, concern for CO2 retention ruled out. Psychiatry is also on board, appreciate their recommendations. It appears that the patient is in a manic state she has been unable to sleep the last couple nights. Unable to determine cause of her encephalopathy at this point however alcoholic, metabolic, septic, toxic causes ruled out essentially. 03/31/17 unclear causation at this time. Starting this morning, patient became altered. During my examination of her early this morning, patient was lying diagonally in her bed with pillow over her head. Patient continually stating that she could not breathe and would not answer any other questions or consent to any type of physical examination. She was then seen and reexamined with her present at which time, she was able sit upright in the bed and able to answer simple questions. A nasal cannula was placed on the patient and her shortness of breath had improved slightly. states that a year and a half ago, patient had the same symptoms but at that time, she was hyponatremic and once her sodium levels normalized, her mental status normalized as well. states that over the last year and a half up until 2 or 3 weeks ago, patient was normal. He states he will and differences time around that her sodium levels have been normal. Chest x-ray negative. Head CT negative. Brain MRI negative for acute processes. Abdominal CT without acute processes and revealing AAA and improving bronchitis. Leukocytosis is trending down-no obvious signs of infection at this time, suspect stress related. Urinalysis negative. CSF unremarkable thus far with CSF culture negative. Tox screen however positive for benzos and marijuana. Has been adamantly states the patient has not had any controlled substances since she was admitted. Informed the it would be unlikely for benzos to stay in her system in the 10 days since she has been discharged. It appears as if the patient was treated for possible alcohol withdrawal during her last admission. According to her , they drink 2-3 beers at night, but not every night. is adamant that this is "not alcohol withdrawal." states that the patient is always "jittery and nervous." He states that they have been for 30 years and this is not new, but what is new is the altered mental status and confusion. He states that they have had increased stress at home with family reunions, etc. It could be a psychological component to this, but will rule out metabolic etiologies. We will check B12, folate, TSH, LDH, PTH, cortisol, VBGs. She was given 1 mg of Ativan IV and appears to have rate returned to her baseline which would be consistent with several etiologies including withdrawal, psychiatric issues. We will continue to monitor and utilize her as a resource. We will bring both neuro and psych on board for further evaluation. ITS Impressions Chest X-Ray 03/30/17 07:01 IMPRESSION: COPD. Atelectasis versus scarring at the bilateral lung bases, stable. D/ / Arnold Yusuf MD / Arnold Yusuf MD Interpreting Provider: Arnold Yusuf MD Head CT 03/30/17 07:01 IMPRESSION: No acute intracranial abnormality. Mild chronic ischemic changes. D/ / Navjot Rosales MD / Navjot Rosales MD Interpreting Provider: Navjot Rosales MD Brain MRI 03/30/17 14:17 IMPRESSION: 1. No acute intracranial abnormality. 2. Mild chronic white matter microvascular ischemic changes. 3. Bilateral mastoid effusions. D/ / Zenon Haro MD / Zenon Haro MD Interpreting Provider: Zenon Haro MD Abdomen/Pelvis CT 03/30/17 19:00 IMPRESSION: 1. No pancreatic cystic or solid mass. No evidence of acute abnormality. 2. Improving patchy lung base bronchitis/bronchiolitis. 3. 1.3 cm infrarenal right anterolateral abdominal aortic saccular aneurysm. 4. Bilateral asymmetric hip arthropathy more prominent on the right. Anterior superior acetabular intraosseous cysts with adjacent complex soft tissue cystic extension suggesting chronic labral tear with a paralabral cyst. D/ / 03/30/2017 18:43:20 Frank Sorenson MD / mariya Interpreting Provider: Frank Sorenson MD (2) Delirium Current Visit: Yes Status: Acute Assessment and plan: Mentation has worsened today- suspect psychiatric issue with sleep deprivation. Appreciate psych reassessment. See prior note for acute encephalopathy (3) Leukocytosis Current Visit: Yes Status: Resolved Assessment and plan: Resolved, suspect stress-related, blood cultures negative. CSF culture negative. Urinalysis negative. No signs of pneumonia. (4) Abnormal toxicological findings Current Visit: Yes Status: Acute Assessment and plan: Tox screen positive for benzos and marijuana. Patient state that she has not used any benzos since her most recent admission (8 days prior to urine sample), unlikely although not impossible that they would still be in her system from 8 days ago. We will continue to investigate. does state that she uses marijuana daily. (5) Pancreatic mass Current Visit: No Status: Chronic Assessment and plan: appears stable- lipase and amylase normal (6) COPD exacerbation Current Visit: No Status: Acute Assessment and plan: Yesterday, patient was continually yelling that she could not breathe. Today, patient stating she feels as if she is drowning. Her respirations are even and easy. She screams when I attempt to auscultate breath sounds even with light touch, no wheezing or crackles appreciated. Will continue to treat for an acute exacerbation. Lung sounds clear to auscultation bilaterally with good aeration. Stable on room air. Also treating for possible panic attacks- will monitor. (7) Hyponatremia Current Visit: No Status: Resolved (8) Lung mass Current Visit: No Status: Chronic Assessment and plan: Plain films from this visit unremarkable. Patient did have a CTA on 03/18/17 with severe emphysematous changes and fibrotic changes bilaterally with possible superimposed pneumonia, right upper lobe tree-in-bud appearance, 6 mm nodule, spiculated. Chest CT obtained which again revealed her severe emphysema with resolution of her spiculated mass noted [address] unremarkable. ITS Impressions Chest X-Ray 03/30/17 07:01 IMPRESSION: COPD. Atelectasis versus scarring at the bilateral lung bases, stable. D/ / Arnold Yusuf MD / Arnold Yusuf MD Interpreting Provider: Arnold Yusuf MD Chest CT 03/31/17 14:30 IMPRESSION: 1. Redemonstration of severe emphysema. 2. Improving asymmetric patchy lateral basilar pulmonary opacities more prominent on the right compared to the prior 03/18/2017 exam with near complete resolution of the 6 mm somewhat spiculated fissural nodule seen on the prior exam. 3. There is some mild nonspecific acute versus chronic right upper lobe subsegmental bronchiolitis. 4. Probable reactive mildly enlarged precarinal lymph node. 5. No findings concerning for primary lung malignancy. D/ / 03/31/2017 15:50:48 Frank Sorenson MD / shae Interpreting Provider: Frank Sorenson MD (9) DVT prophylaxis Current Visit: No Status: Acute Assessment and plan: Subcutaneous heparin (10) Hypertension Current Visit: Yes Status: Chronic Assessment and plan: Hypertensive at times however she has been agitated and is refusing medications. Will continue to address her agitation and altered mental status. Will continue IV antihypertensive medications as needed. We will trend Qualifiers: Hypertension type: essential hypertension Qualified Code(s): I10 - Essential (primary) hypertension (11) Anxiety Current Visit: No Status: Chronic Assessment and plan: appears severe and uncontrolled. Per psychiatry, consistent with mood instability and she was strarted on Depakote yesterday and will followup outpatient with psychiatry. [facility] report negative for any controlled substance prescriptions. Appreciate psychiatry's input. (12) COPD (chronic obstructive pulmonary disease) Current Visit: Yes Status: Chronic Qualifiers: COPD type: emphysema Emphysema type: panlobular Qualified Code(s): J43.1 - Panlobular emphysema (13) Hypertensive urgency Current Visit: Yes Status: Acute Assessment and plan: IV medications as needed - Subjective Interval history: Patient seen and examined. On examination, patient is lying supine in bed with her eyes closed. She is not answering questions and the history was obtained via her and other family at the bedside. states the patient did not sleep at all last night, and states that approximately 4am, "She went nuts." She was reportedly screaming and incoherent at times. states he is always able to talk her down out of these events, but this time, he was not able to calm her down. Patient was given IV ativan at midnight, and again at 4am which did "nothing" according to her . Patient is intermittently screaming random words and phrases. - Constitutional Vitals: Temp Pulse Resp BP Pulse Ox 97.9 F 80 17 185/96 93 04/02/17 11:16 04/02/17 11:16 04/02/17 11:16 04/02/17 11:16 04/02/17 11:16 General appearance: Present: A&O X 1 (person only), disheveled, mild distress, A &O X 3. Absent: cooperative, answers questions appropriately - Head Head exam: Present: atraumatic, normocephalic - Eye Eye exam: Present: PERRL, conjuntiva pink, sclera anicteric Pupils: Present: PERRL - Neck Neck exam general surgery: Present: supple, trachea midline. Absent: lymphadenopathy - Respiratory Respiratory exam: Present: decreased breath sounds. Absent: accessory muscle use, rales, respiratory distress, rhonchi, wheezes - Cardiovascular Cardiovascular exam: Present: RRR, +S1, +S2. Absent: diastolic murmur, gallop, rubs, systolic murmur - GI/Abdominal GI/Abdominal exam: Present: normal bowel sounds, soft, no peritoneal signs. Absent: distended, tenderness - Extremities Exam Extremities exam: Present: warm, radial pulses palpable and symetrical. Absent : calf tenderness, cyanotic, pedal edema - Neurological Exam Neurological exam: Present: altered, CN II-XII intact, no focal deficits. Absent: pronater drift, facial droop, speech deficit - Expanded Neurological Exam Neurological exam expanded: Present: protecting the airway Patient oriented to: Present: person Speech: Present: expressive aphasia Neuro motor strength exam: LUE: 5, RUE: 5, LLE: 5, RLE: 5 Coma Scale Eye Opening: None Coma Scale Motor Response: Withdraws to Pain Coma Scale Verbal Response: Confused Coma Scale Total: 9 - Psychiatric Psychiatric exam: Present: agitated - Expanded Psychiatric Exam Focused psych exam: Present: catatonic, pressured speech, psychomotor agitation , restlessness - Skin Skin exam: Present: dry, intact, pallor, warm Internal Medicine: Result - Labs CBC & Chem 7: 04/01/17 04:47 04/02/17 08:25 Labs: BMP 04/02/17 08:25 Sodium 138 Potassium 4.0 Chloride 106 Carbon Dioxide 25 BUN 14 Creatinine 0.67 Glucose 98 Calcium 9.3 - ABG Interpretation ABG results: ABG ABG pH 7.50 pH Units (7.32-7.45) H 03/31/17 18:35 ABG pCO2 32 mmHg (35-45) L 03/31/17 18:35 ABG pO2 62 mmHg (85-104) L 03/31/17 18:35 ABG O2 Saturation 93 % (95-98) L 03/31/17 18:35 PT/INR, D-dimer PT 9.9 Seconds (9.4-12.1) 03/30/17 06:51 D-Dimer 619 ng/mLFEU (0-500) H 04/01/17 13:31 - Impressions Impressions Chest CTA 04/01/17 16:05 IMPRESSION: 1. No acute pulmonary emboli. 2. Redemonstration of severe emphysema with essentially stable patchy bilateral subsegmental basilar predominant pulmonary opacities more prominent on the right. 3. No acute thoracic abnormality. D/ / 04/01/2017 16:56:10 Frank Sorenson MD / joselyn Interpreting Provider: Frank Sorenson MD Consult Discharge Plan - Plan Referrals: Tj Ventura MD [Primary Care Provider] -
[2017-04-02] MEDS: Valproic Acid INJ 125 MG in 0.9 % Sodium Chloride 100 ML IVPB SCH ×2 (14:20→20:42)
[2017-04-02] MEDS: D5% in 0.45% NACL 1,000 ML IVC SCH (14:21)
[2017-04-02] MEDS ORDERED: Haloperidol Lactate 5 MG/ML VIAL IVP ONE ×2 (15:05→15:33)
[2017-04-02] MEDS: Haloperidol Lactate 5 MG/ML VIAL IVP PRN ×2 (15:23→20:41)
[2017-04-02] MEDS ORDERED: Haloperidol Lactate 5 MG/ML VIAL ONE (15:34)
[2017-04-03] MEDS: Ipratropium/Albuterol Neb 3 ML IH SCH ×2 (03:00→08:26)
[2017-04-03] MEDS: *HR* Heparin 5,000 UNIT/ML VIAL SQ SCH (04:52)
[2017-04-03] MEDS: predniSONE 20 MG TABLET PO SCH (07:49)
[2017-04-03] MEDS: hydrALAZINE 25 MG TABLET PO SCH (07:50)
[2017-04-03] MEDS: D5% in 0.45% NACL 1,000 ML IVC SCH (07:51)
[2017-04-03] MEDS: Valproic Acid INJ 125 MG in 0.9 % Sodium Chloride 100 ML IVPB SCH (08:22)
[2017-04-03] MEDS: Budesonide/Formoterol 160/4.5 MDI IH SCH (08:26)
[2017-04-03 08:37] VITALS: BP 151/83
--- NOTE | 2017-04-03 09:22 | Discharge Summary ---
Date of Encounter: 04/03/17 Time of Encounter: 09:00 - Discharge Diagnosis (1) Acute encephalopathy Priority: Primary Status: Resolved Comments: Patient is completely back to her baseline today. She is alert and oriented 3 and able to engage in a normal conversation. She was able to feed herself this morning. We will continue mood stabilizer and Seroquel upon discharge and have her follow closely outpatient. (2) Delirium Priority: Primary Status: Resolved (3) Leukocytosis Priority: Primary Status: Resolved (4) Abnormal toxicological findings Priority: Primary Status: Acute Comments: Tox screen positive for benzos and marijuana. Patient's state that she has not used any benzos since her most recent admission (8 days prior to urine sample), unlikely although not impossible that they would still be in her system from 8 days ago. does state that she uses marijuana daily. We have recommended that the patient abstain from alcohol and marijuana for 3-4 weeks to completely rule that out as a causative factor of her altered mental status episodes. (5) Pancreatic mass Priority: Secondary Status: Chronic Comments: stable- lipase and amylase normal. able to tolerate a regular diet while admitted. (6) COPD exacerbation Priority: Primary Status: Resolved Comments: Patient denies shortness of breath above her normal day of discharge. Suspect psychological component as the patient had good aeration without increased work of breathing throughout this admission. (7) Hyponatremia Priority: Primary Status: Resolved (8) Lung mass Priority: Secondary Status: Chronic Comments: Plain films from this visit unremarkable. Patient did have a CTA on 03/18/17 with severe emphysematous changes and fibrotic changes bilaterally with possible superimposed pneumonia, right upper lobe tree-in-bud appearance, 6 mm nodule, spiculated. Chest CT obtained which again revealed her severe emphysema with resolution of her spiculated mass noted [address] unremarkable. Follow-up outpatient. ITS Impressions Chest X-Ray 03/30/17 07:01 IMPRESSION: COPD. Atelectasis versus scarring at the bilateral lung bases, stable. D/ / Arnold Yusuf MD / Arnold Yusuf MD Interpreting Provider: Arnold Yusuf MD Chest CT 03/31/17 14:30 IMPRESSION: 1. Redemonstration of severe emphysema. 2. Improving asymmetric patchy lateral basilar pulmonary opacities more prominent on the right compared to the prior 03/18/2017 exam with near complete resolution of the 6 mm somewhat spiculated fissural nodule seen on the prior exam. 3. There is some mild nonspecific acute versus chronic right upper lobe subsegmental bronchiolitis. 4. Probable reactive mildly enlarged precarinal lymph node. 5. No findings concerning for primary lung malignancy. D/ / 03/31/2017 15:50:48 Frank Sorenson MD / aisha Interpreting Provider: Frank Sorenson MD (9) DVT prophylaxis Priority: Primary Status: Acute Comments: Subcutaneous heparin while admitted (10) Hypertension Priority: Secondary Status: Chronic Comments: Hypertensive at times however she had been agitated and had refused medications. Blood pressure improved on the discharge when the patient was back to her baseline. Still recommend daily blood pressure checks at home, keeping a log, and following up outpatient. Qualifiers: Hypertension type: essential hypertension Qualified Code(s): I10 - Essential (primary) hypertension (11) Anxiety Priority: Secondary Status: Chronic Comments: appears severe and uncontrolled. Per psychiatry, consistent with mood instability and she was started on Depakote while admitted and she was back to her baseline prior to discharge. Followup outpatient with psychiatry. [facility] report negative for any controlled substance prescriptions. (12) COPD (chronic obstructive pulmonary disease) Priority: Secondary Status: Chronic Qualifiers: COPD type: emphysema Emphysema type: panlobular Qualified Code(s): J43.1 - Panlobular emphysema (13) Hypertensive urgency Priority: Primary Status: Resolved - Discharge Medications Prescriptions: Divalproex Sodium [Depakote Sprinkle] 125 mg PO BID #60 cap.sprink predniSONE [PredniSONE] 10 mg PO DAILY #18 tablet Quetiapine Fumarate [Seroquel] 25 mg PO HS #30 tablet Home Medications: Albuterol Sulfate [Albuterol Inhaler] 2 puff IH Q4-6H PRN 03/18/17 [History] Atenolol [Tenormin] 50 mg PO BID 03/18/17 [History] Losartan Potassium [Cozaar] 100 mg PO DAILY 03/18/17 [History] Budesonide/Formoterol 160/4.5 [Symbicort 160/4.5] 2 puff IH BIDR 30 Days [Rx] hydrALAZINE [HydrALAZINE] 25 mg PO TID #90 tablet 03/22/17 [Rx] Divalproex Sodium [Depakote Sprinkle] 125 mg PO BID #60 cap.sprink 04/03/17 [Rx] Quetiapine Fumarate [Seroquel] 25 mg PO HS #30 tablet 04/03/17 [Rx] predniSONE [PredniSONE] 10 mg PO DAILY #18 tablet 04/03/17 [Rx] Allergies/Adverse Reactions: Allergies No Known Allergies Allergy (Verified 03/18/17 15:12) Procedures/tests Complete & Pending: Procedures Performed prior 72 hours Category Date Time Status CTA chest [CT angio chest] [CT] Routine Cat Scan 04/01/17 16:05 Completed Date of admission: 04/01/17 13:15 Primary care physician: Tj Ventura MD Consults: 03/31/17 13:03 Consult to Nurse Navigator [CONS] Routine Comment: 03/31/17 13:04 Consult to Neurology [CONS] Routine Consulting Provider: [facility] Reason for Consult: acutely encephalopathic with unknown etiology Time Notified: 13:04 Call Completed: Yes Consult to Psychiatry [CONS] Routine Consulting Provider: Psychiatry [facility] Reason for Consult: acutely encephalopathic. Also suspect severe anxiety/ panic attacks Time Notified: 13:05 Call Completed: Yes Discharging clinician: Verona Khan Anticipated date of discharge: 04/03/17 - Patient Status Disposition: Home, Self-Care Condition: Good Functional capacity at discharge: independent ambulation Overall status at discharge: patient is back to baseline - Discharge Instructions Follow Up With: Tj Ventura MD [Primary Care Provider] - Edita Mendenhall MD [Partnered Physician] - Additional Instructions: Follow-up with primary care provider within one to 2 weeks, follow-up psychiatry as soon as possible. - Diet and Activity Activity: increase activity as tolerated Diet: low salt diet Hospital course: Ms. Nichols is a 66 year old female with past medical history of COPD, hypertension, hyponatremia, marijuana abuse, alcohol abuse. Patient presented to the emergency department chief complaint of altered mental status. Patient had been having waxing and waning of her confusion for several days prior to presentation. She was recently hospitalized 10 days prior to this presentation for the same chief complaint and at the time of discharge, she had returned back to her baseline since she was sent home. During the prior admission, she was treated for pneumonia and possible alcohol withdrawal. She also had an admission a year and a half ago for the same complaint and at that time, the cause of her altered mental status was attributed to hyponatremia. Workup in the emergency department notable for accelerated hypertension and confusion on examination. A lumbar puncture was performed in the emergency department. Chest x-ray negative for acute processes. Head CT negative for acute processes. Patient was admitted to the hospitalist service for further evaluation and management. Brain MRI negative for acute processes. Abdominal pelvic CT negative for acute processes and also subsequently revealed improvement in her bilateral lower lobe bronchitis. Patient was admitted and observed over the course of 4 nights. During this admission, prior to the day of discharge, patient's altered mental status had worsened and she got to the point where she was unable to sleep despite several doses of IV Ativan. Neurology and psychiatry were on board during this admission. Reversible, metabolic causes were heavily investigated and essentially ruled out. B12, folate, TSH, parathyroid, cortisol levels all normal. Leukocytosis has resolved , suspect stress related. No signs of acute infections. Blood gases were unremarkable. CTA ruled out a PE. Urinalysis negative. CSF culture negative. Her sodium and osmolality levels remained stable during this admission. Tox screen was positive for benzos and marijuana. Regarding her benzos, patient was given Librium during her admission just prior to this one and her stated that there were no benzos in the house. Patient and did endorse daily marijuana abuse. Psychiatry started the patient on Depakote for mood stabilizer and she was also started on Seroquel to assist with her insomnia. On day of discharge, patient rested well overnight, and in the morning, she is completely back to her baseline. She was alert and oriented 3 and denied pain or shortness of breath. She was able to tolerate a regular diet and able to feed herself. She had no focal neurological weakness is present. Her symptoms were not consistent with alcohol withdrawal. states that she drinks 2- 3 beers at night but does not drink every night. She remained hemodynamically stable during this admission. After considerable workup, suspected cause of her altered mental status was psychiatric in origin. Her states that in the 2 weeks prior to this presentation, patient had increased stressors at home and her anxiety was increased according to her . When she was able to rest, snoring was noted, recommend outpatient sleep study at the discretion of her primary care provider. Overall, after an extensive workup, there does not appear to be a metabolic or infectious etiology to the patient's encephalopthy. In congruence with psychiatry, the following plan for outpatient follow-up was rendered-continue Depakote and Seroquel. Abstain from alcohol and marijuana for at least 3-4 weeks to rule that out as a causative factor. Check electrolytes every week to rule out hyponatremia. It is unclear how long the patient has been on steroids, we will taper her off steroids over the next several days after discharge. This plan of care was discussed with the patient and the and they were in agreement. Again, patient was completely back to her baseline on day of discharge. She was discharged home in stable condition with close outpatient follow-up with her primary care provider and was psychiatry highly recommended. ITS Impressions Chest X-Ray 03/30/17 07:01 IMPRESSION: COPD. Atelectasis versus scarring at the bilateral lung bases, stable. D/ / Arnold Yusuf MD / Arnold Yusuf MD Interpreting Provider: Arnold Yusuf MD Head CT 03/30/17 07:01 IMPRESSION: No acute intracranial abnormality. Mild chronic ischemic changes. D/ / Navjot Rosales MD / Navjot Rosales MD Interpreting Provider: Navjot Rosales MD Brain MRI 03/30/17 14:17 IMPRESSION: 1. No acute intracranial abnormality. 2. Mild chronic white matter microvascular ischemic changes. 3. Bilateral mastoid effusions. D/ / Zenon Haro MD / Zenon Haro MD Interpreting Provider: Zenon Haro MD Abdomen/Pelvis CT 03/30/17 19:00 IMPRESSION: 1. No pancreatic cystic or solid mass. No evidence of acute abnormality. 2. Improving patchy lung base bronchitis/bronchiolitis. 3. 1.3 cm infrarenal right anterolateral abdominal aortic saccular aneurysm. 4. Bilateral asymmetric hip arthropathy more prominent on the right. Anterior superior acetabular intraosseous cysts with adjacent complex soft tissue cystic extension suggesting chronic labral tear with a paralabral cyst. D/ / 03/30/2017 18:43:20 Frank Sorenson MD / mariya Interpreting Provider: Frank Sorenson MD Chest CT 03/31/17 14:30 IMPRESSION: 1. Redemonstration of severe emphysema. 2. Improving asymmetric patchy lateral basilar pulmonary opacities more prominent on the right compared to the prior 03/18/2017 exam with near complete resolution of the 6 mm somewhat spiculated fissural nodule seen on the prior exam. 3. There is some mild nonspecific acute versus chronic right upper lobe subsegmental bronchiolitis. 4. Probable reactive mildly enlarged precarinal lymph node. 5. No findings concerning for primary lung malignancy. D/ / 03/31/2017 15:50:48 Frank Sorenson MD / aisha Interpreting Provider: Frank Sorenson MD Chest CTA 04/01/17 16:05 IMPRESSION: 1. No acute pulmonary emboli. 2. Redemonstration of severe emphysema with essentially stable patchy bilateral subsegmental basilar predominant pulmonary opacities more prominent on the right. 3. No acute thoracic abnormality. D/ / 04/01/2017 16:56:10 Frank Sorenson MD / [email or web address] Interpreting Provider: Frank Sorenson MD - Time Spent with Patient Total time spent providing and/or coordinating discharge services: - Constitutional Vitals: Temp Pulse Resp BP Pulse Ox 98.4 F 74 16 151/83 91 04/03/17 08:36 04/03/17 08:36 04/03/17 08:36 04/03/17 08:36 04/03/17 08:36 General appearance: Present: cooperative, A&O X 3, pleasant, no acute distress, underweight, answers questions appropriately. Absent: disheveled - Head Head exam: Present: atraumatic, normocephalic - Eye Eye exam: Present: PERRL, conjuntiva pink, sclera anicteric Pupils: Present: PERRL - Neck Neck exam general surgery: Present: supple, trachea midline. Absent: lymphadenopathy - Respiratory Respiratory exam: Present: CTAB. Absent: accessory muscle use, rales, respiratory distress, rhonchi, wheezes - Cardiovascular Cardiovascular exam: Present: RRR, +S1, +S2. Absent: diastolic murmur, gallop, rubs, systolic murmur - GI/Abdominal GI/Abdominal exam: Present: normal bowel sounds, soft, no peritoneal signs. Absent: distended, tenderness - Extremities Exam Extremities exam: Present: warm, radial pulses palpable and symetrical. Absent : calf tenderness, cyanotic, pedal edema - Neurological Exam Neurological exam: Present: alert, CN II-XII intact, normal gait, oriented X3, no focal deficits, strengths equal and symetr throughout. Absent: pronater drift, facial droop, speech deficit - Psychiatric Psychiatric exam: Present: normal affect, normal mood. Absent: suicidal ideation - Skin Skin exam: Present: dry, intact, normal color, warm
[2017-04-04 10:23] LABS: HSV 1 Glycoprotein G IgG CSF 0.32 IV (<=0.89); HSV 2 Glycoprotein G IgG CSF 0.26 IV (<=0.89)
== END 2017-04-03 11:23 | disposition home or self-care (01) ==
LOC: 3BNU 06:31 → EMEROO 06:31 → SUATTDRO 12:29 → 3BNU 13:11
PROVIDERS: ADMIT Internal Medicine; ATTEND Nurse Practitioner Family